=== PATIENT | female | born 1955 | race Caucasian/White ===

== ENCOUNTER 2017-08-30 19:10 | Inpatient (IN) | payer OTHER ==
[~2017-08-30] VITALS: Ht 149.9 cm; Wt 59.9 kg
--- NOTE | 2017-08-30 20:32 | ED INFLUENZA/URI COMPLAINT ---
History of Present Illness General Chief Complaint: General Adult Stated Complaint: "SHE DOESNT FEEL GOOD THE PAST DAYS" PER Source: patient Exam Limitations: no limitations Vital Signs & Intake/Output Vital Signs & Intake/Output Vital Signs Date Time Temp Pulse Resp B/P B/P Pulse O2 O2 Flow FiO2 Mean Ox Delivery Rate 08/31 0211 98.6 102 20 85/48 94 Room Air 08/31 0030 104 22 99/58 94 Room Air 08/30 2341 98.2 106 22 99/55 94 08/30 2145 98.4 108 18 100/50 93 Room Air 08/30 1921 99.6 140 18 135/73 94 Room Air ED Intake and Output 08/31 0000 08/30 1200 Intake Total Output Total Balance Patient 132 lb Weight Weight Reported by Patient Measurement Method Allergies Coded Allergies: No Known Allergies (08/30/17) Reconcile Medications Calcium Carb/Vitamin D3/Vit K1 (Calcium + D Soft Chewable Tab) 500 MG CALCIUM-1, 000 UNIT-40 MCG TAB.CHEW 2 TAB PO DAILY SUPPLEMENT (Reported) Multivitamin (Animal Chews) 1 EACH TAB.CHEW 2 TAB PO DAILY SUPPLEMENT ( Reported) Triage Note: PT TO TRIAGE C/O DIZZINESS AND CHILLS X2 DAYS. REPORTS VOMITING YESTERDAY WITH L FLANK PAIN, DENIES PAIN TODAY. HR 140 IN TRIAGE CHECKED WITH PULSE OX AND MANUALLY BY THIS RN. EKG ORDERED. DENIES MEDICAL HX. Triage Nurses Notes Reviewed? yes Onset: Abrupt Duration: constant Timing: recent history Severity: moderate Severity Numbers: 5 HPI: Patient is a 62-year-old female with an unremarkable past medical history presents emergency and that yesterday evening patient had acute onset of 5/10 localized left back and left flank pain that resolved in the morning however this evening patient began having acute onset of generalized fevers regular is shaky chills and nonproductive cough and generalized weakness and fatigue. Patient denies any headache neck pain neck stiffness ear pain sore throat chest pain and arm pain jaw pain nausea vomiting dysuria hematuria Patient did not take any medications prior to arrival, denies any similar sick contacts. Patient did take Tylenol prior to arrival (Florian Parker) ED Sepsis Exam Date of Focused Sepsis Exam: 08/31/17 Time of Focused Sepsis Exam: 2104 Sepsis Cardiac Exam: Tachycardia Sepsis Resp Exam: CTA Sepsis Cap Refill Exam: <2 Sec Sepsis Peripheral Pulse Exam: Normal Sepsis Peripheral Pulse Location: Radial Sepsis Skin Color Exam: Normal for Ethnicity Skin Temp/Moisture Exam: Warm/Dry (Florian Parker) Past History Travel History Traveled to [place] past 21 day No Medical History Any Pertinent Medical History? 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 No (Florian Parker) Review of Systems Review of Systems Constitutional: Reports: see HPI, chills. EENTM: Reports: no symptoms. Respiratory: Reports: see HPI, cough. Cardiovascular: Reports: no symptoms. GI: Reports: see HPI. Genitourinary: Reports: no symptoms. Musculoskeletal: Reports: no symptoms. Skin: Reports: no symptoms. Neurological/Psychological: Reports: no symptoms. Hematologic/Endocrine: Reports: no symptoms. Immunologic/Allergic: Reports: no symptoms. All Other Systems: Reviewed and Negative (Florian Parker) Physical Exam Physical Exam General Appearance: no apparent distress, alert, comfortable Ears, Nose, Throat: normal ENT inspection, moist mucous membrane, hearing grossly normal Rectal: heme negative stool Comments: HEENT: Normal EENT exam, extraocular motion intact, no nystagmus. Pupils equally round and reactive to light and accommodation. Nose is atraumatic. External auditory canal and Tympanic membranes clear. Pharynx normal. No swelling or edema. Neck: Supple, no lymphadenopathy, normal range of motion without pain or tenderness Back: Nontender, no CVA tenderness. Cardiovascular: TACHYCARDIA, no murmurs rubs or gallops, normal JVP Respiratory: Chest nontender. No respiratory distress.breath sounds clear to auscultation bilaterally Abdomen: Soft, nontender nondistended, no appreciable organomegaly. Normal bowel sounds. No ascites Extremity: No edema, no calf tenderness to palpation, normal and equal pulses. Neuro: Alert oriented x3 Skin: No appreciable rash on exposed skin, skin is warm and dry. Psych: Mood and affect is normal, memory and judgment is normal. Core Measures Sepsis Present: Yes Sepsis Focused Exam Completed? Yes (Florian Parker) Progress Differential Diagnosis: influenza, meningitis, neutropenia, otitis, pneumonia, pharyngitis, sinusitis Plan of Care: Orders Procedure Date/time Status Heart Healthy Diet 08/31 B Active TROPONIN LEVEL 08/31 0700 Active LIPID PANEL 08/31 07 Active CBC WITHOUT DIFFERENTIAL 08/31 07 Active BASIC ELECTROLYTES PLUS BUN&CR 08/31 07 Active EKG 08/31 0700 Active Pathway - chart 08/31 0113 Active Patient Data 08/31 0113 Active Code Status 08/31 0113 Active Patient Data 08/31 0104 Active TROPONIN LEVEL 08/31 0102 Active LACTIC ACID 08/31 0037 Complete OXYGEN SETUP (GEN) 08/31 0035 Active Saline Lock 08/31 0035 Active Admit to inpatient 08/31 0035 Active Vital Signs 08/31 0035 Active Activity/Ambulation 08/31 0035 Active Code Status 08/31 0035 Complete EKG 08/31 0029 Active BLOOD CULTURE 08/31 0020 Active Pathway - chart 08/31 UNK Active House Staff 08/31 UNK Active VTE Mechanical Prophylaxis 08/31 UNK Active Vital Signs 08/31 UNK Active Intake & Output 08/31 UNK Active Activity/Ambulation 08/31 UNK Active CASE MANAGEMENT CONSULT 08/31 UNK Active ECHOCARDIOGRAM 08/31 UNK Active Add-on Test (ER Only) 08/30 2340 Active Valdez, Insertion/Removal/Asses 08/30 2331 Active CULTURE,URINE 08/30 2331 Active URINE OSMOLALITY 08/30 2309 Active URINALYSIS 08/30 2309 Complete Add-on Test (ER Only) 08/30 2250 Active PARTIAL THROMBOPLASTIN TIME 08/30 2055 Complete PROTHROMBIN TIME 08/30 2055 Complete Telemetry/Parts Cataloguer 08/30 204 Active RAPID VIRAL INFLUENZA A 08/30 2030 Complete TROPONIN LEVEL 08/30 2030 Complete D-DIMER 08/30 2030 Complete COMPREHENSIVE METABOLIC PANEL 08/30 2030 Complete CBC WITHOUT DIFFERENTIAL 08/30 2030 Complete EKG 08/30 1923 Active Current Medications Sig/Sarah Start time Last Medication Dose Stop Time Status Admin Multivitamins 1 TAB DAILY 08/31 1000 AC (Theragran Vitamins) Heparin Sodium 25,000 UNIT Q24H 08/30 2230 AC 08/31 (Porcine) 0019 (Heparin) Sodium Chloride 500 ML Laboratory Tests 08/31/17 0208: Troponin I Pending 08/31/17 0046: Lactic Acid 1.6 08/30/172344: Urinalysis HEAVY H, Urine Color BROWN H, Urine Clarity TURBD H, Urine pH 6.5, Ur Specific [place] 1.025, Urine Protein >=300 H, Urine Ketones TRACE H, Urine Nitrite POS H, Urine Bilirubin NEG@ICTO, Urine Urobilinogen 1.0, Ur Leukocyte Esterase LARGE H, Ur Microscopic SEDIMENT EXAMINED, Urine RBC >75 H, Urine WBC > 75 H, Ur Epithelial Cells FEW, Urine Bacteria MANY H, Urine Hemoglobin LARGE H, Urine Glucose NEG 08/30/17 2250: PT Cancelled, INR Cancelled, APTT Cancelled 08/30/172054: Anion Gap 16, Estimated GFR 11 L, BUN/Creatinine Ratio 12.8, Glucose 106 H, Calcium 8.7, Total Bilirubin 0.6, AST 31, ALT 39, Alkaline Phosphatase 196 H, Troponin I 0.21 *H, Total Protein 5.9 L, Albumin 3.0 L, Globulin 2.9, Albumin/ Globulin Ratio 1.0 L, PT 13.6 H, INR 1.30 H, APTT 26, D-Dimer High Sensitivty 9356 H, CBC w Diff MAN DIFF ORDERED, RBC 4.33, MCV 92.1, MCH 31.1 H, RDW 12.8, MPV 7.6, Gran % 97.0 H, Lymphocytes % 2.6 L, Monocytes % 0.3 L, Eosinophils % 0.1, Basophils % 0, Absolute Granulocytes 8.4 H, Segmented Neutrophils 86 H, Band Neutrophils 9 H, Absolute Lymphocytes 0.2 L, Lymphocytes 2 L, Monocytes 3, Absolute Monocytes 0 L, Absolute Eosinophils 0, Absolute Basophils 0, Platelet Estimate DECREASED, Normocytic RBCs VERIFIED, Normochromic RBCs VERIFIED, PUBS MCHC 33.8 Microbiology 08/31 0130 BLOOD: Blood Culture - RECD 08/31 0046 BLOOD: Blood Culture - RECD 08/30 2345 URINE ROUT: Urine Culture - RECD 08/30 2045 NASOPHARYN: Influenza Virus A & B Rapid Smear - COMP Other differential diagnosis acute renal colic and nephrolithiasis lumbar strain discitis Patient has nontender abdomen no flank tenderness no CVA tenderness nontender lumbar spine and has unremarkable physical exam patient does present noted to be sinus tachycardia and low-grade fever IV fluids were established Patient had critical findings of acute kidney injury and elevated troponin and patient on EKG does show concerns of a suspecting old non-STEMI due to patient's elevated troponin and Q waves Patient also has concerns initially of tachycardia and d-dimer was significantly elevated however patient could not obtain a CT angiogram in the emergency room. Heparin will be administered prophylactically for PE and for elevated troponin Patient also could not produce urine in the emergency room it was due to patient 's acute kidney injury that a Valdez catheter was placed patient did produce significantly concentrated urine IV fluid resuscitation was ordered - 4 liters, Rocephin was administered for concerns of urine infection I discussed critical findings of elevated troponin and concerns of non-STEMI and acute kidney injury With patient and family members were aware patient will be admitted Discussed admission with charger operator helper Dr. Bhakta who is aware of ICU admission Diagnostic Imaging: Viewed by Me: Radiology Read, CT Scan. CXR Impression: no acute abnormality, no infiltrates Initial ED EK BPM, NSR q wave noted in inferior leads Comments: PATIENT: KRISTI PINK PRESENT AGE: 62 PATIENT ACCOUNT NO: [id number] : 55 LOCATION: [facility] ORDERING PHYSICIAN: Florian TIM SERVICE DATE: 08/30/17 EXAM TYPE: CAT - CT ABD & PELVIS W/O IV CONTRAS EXAMINATION: CT ABDOMEN AND PELVIS WITHOUT CONTRAST CLINICAL INFORMATION: Left back pain. COMPARISON: None. TECHNIQUE: Multidetector volumetric imaging was performed from the superior aspect of the liver through the pubic symphysis. Sagittal and coronal reformatted images were obtained on the technologist's workstation. DLP: 277.63 mGy-cm FINDINGS: LUNG BASES: The visualized lung bases are unremarkable. LIVER, GALLBLADDER, AND BILIARY TREE: There is hepatomegaly. Liver measures 22.4 cm superior inferior. Diffuse low attenuation of liver parenchyma due to fatty change. No focal liver lesion. No intrahepatic bile duct dilatation. There are tiny calcified gallstones layering dependently in the gallbladder. No gallbladder wall thickening or edema around the gallbladder. No bile duct dilatation. PANCREAS: Unremarkable. SPLEEN: Unremarkable. ADRENAL GLANDS: Unremarkable. KIDNEYS AND URETERS: There is significant hydronephrosis of left kidney with distention of renal pelvises and calyces and edema around the kidney. This is due to an obstructing stone in the proximal left ureter at the ureteropelvic junction. The stone measures 6 x 4 mm. There is no additional 2 mm nonobstructive stone and 4 mm nonobstructive stone in the lower pole of left kidney. Right kidney and ureter are normal. BLADDER: Unremarkable. GASTROINTESTINAL TRACT: No acute change of the bowel. No bowel obstruction. No bowel wall thickening or edema. Moderate amount of stool in the colon. There are some flecks of high density material scattered throughout the stool in the right colon and transverse colon, or lead ingested material. The appendix is not visualized. No inflammation the mesentery right lower quadrant. Small bowel loops unremarkable. ABDOMINAL WALL: No significant hernia is appreciated. LYMPH NODES: Normal. VASCULAR: Unremarkable. PELVIC VISCERA: Unremarkable. OSSEOUS STRUCTURES: Unremarkable. IMPRESSION: 1. Hydronephrosis of the left kidney due to an obstructing 6 x 4 mm stone at the ureteropelvic junction. 2 additional small nonobstructive calculi in left kidney. 2. Cholelithiasis. 3. Hepatomegaly with diffuse fatty change of liver. DICTATED BY: Dami Rodriguez MD DATE/TIME DICTATED:08/30/172231 DIRECTOR OF PUPIL PERSONNEL PROGRAM:CHARISMA PATIENT: KRISTI PINK PRESENT AGE: 62 PATIENT ACCOUNT NO: [id number] : 55 LOCATION: [facility] ORDERING PHYSICIAN: Florian TIM SERVICE DATE: 08/30/17 EXAM TYPE: RAD - XRY-CHEST XRAY, TWO VIEWS EXAMINATION: XR CHEST CLINICAL INFORMATION: Cough, fever COMPARISON: None TECHNIQUE: 2 views of the chest were obtained. FINDINGS: No significant abnormality is noted involving the heart, lungs, mediastinum, bony thorax or soft tissues. IMPRESSION: No acute abnormality of the chest. DICTATED BY: Dami Rodriguez MD DATE/TIME DICTATED:08/30/172227 DIRECTOR OF PUPIL PERSONNEL PROGRAM:CHARISMA (Nikki TIM,Florian) Departure Departure Disposition: STILL A PATIENT Condition: Guarded Clinical Impression Primary Impression: Non-ST elevated myocardial infarction Secondary Impressions: LAURIE (acute kidney injury), Elevated troponin, Kidney stone on left side Referrals: Luann Moya MD (PCP/Family) Departure Forms: Customer Survey General Discharge Information Admission Note Spoke With: Giovani GREENBERG,[place] Documentation of Exam: Documentation of any treatments & extenuating circumstances including Concerns Regarding Discharge (functional status, medication knowledge or non-compliance, living conditions, etc.) that warrant an admission rather than observation: [ Patient requires IV antibiotics, heparin, repeat labs, telemetry monitoring, IV fluid resuscitation, blood cultures urine culture pending] (Florian Parekr) PA/BOX SEALING MACHINE OPERATOR Co-Sign Statement Statement: ED Attending supervision documentation- I saw and evaluated the patient. I have also reviewed all the pertinent lab results and diagnostic results. I agree with the findings and the plan of care as documented in the PA's/BOX SEALING MACHINE OPERATOR's documentation. Dizzy, chills, L flank pain with LAURIE, +troponin, hydronephrosis with obstructing stone, inferior Q waves [] I have reviewed the ED Record and agree with the PA's/BOX SEALING MACHINE OPERATOR's documentation. [] Additions or exceptions (if any) to the PAs/BOX SEALING MACHINE OPERATOR's note and plan are summarized below: [] (Renetta GREENBERG,[place]) Critical Care Note Critical Care Note Critical Care Time: 75-104 min (Florian Parker)
[2017-08-30 21:04] LABS: ABSOLUTE BASOPHIL COUNT 0 /CUMM (0.0-0.2); ABSOLUTE EOSINOPHIL COUNT 0 /CUMM (0.0-0.7); ABSOLUTE GRANULOCYTE CT 8.4 /CUMM (1.4-6.5); ABSOLUTE LYMPH COUNT 0.2 /CUMM (1.2-3.4); ABSOLUTE MONOCYTE COUNT 0 /CUMM (0.10-0.60); BASOPHIL % 0 % (0.0-2.0); EOSINOPHIL % 0.1 % (0-5); HEMATOCRIT 39.9 % (37-47); MEAN CORPUSCULAR HGB 31.1 PG (27.0-31.0); MEAN CORPUSCULAR HGB CONC 33.8 G/DL (33.0-37.0); MEAN CORPUSCULAR VOLUME 92.1 FL (81.0-99.0); MEAN PLATELET VOLUME 7.6 FL (7.4-10.4); PLATELET COUNT 123 /CUMM (130-400); RBC DISTRIBUTION WIDTH 12.8 % (11.5-14.5); RED BLOOD CELL CT 4.33 /CUMM (4.20-5.40); WHITE BLOOD CELL COUNT 8.7 /CUMM (4.8-10.8)
[2017-08-30] MEDS ORDERED: CALCIUM + D SO1 EACH PO (21:33)
[2017-08-30] MEDS ORDERED: ANIMAL CHEWS1 EACH PO (21:33)
--- NOTE | 2017-08-30 22:32 | RADIOLOGY REPORT ---
EXAMINATION: XR CHEST CLINICAL INFORMATION: Cough, fever COMPARISON: None TECHNIQUE: 2 views of the chest were obtained. FINDINGS: No significant abnormality is noted involving the heart, lungs, mediastinum, bony thorax or soft tissues. IMPRESSION: No acute abnormality of the chest.
[2017-08-30 23:00] LABS: PT 13.6 SEC (9.4-12.5); PTT 26 SEC (25-37)
--- NOTE | 2017-08-30 23:32 | CT SCAN REPORT ---
EXAMINATION: CT ABDOMEN AND PELVIS WITHOUT CONTRAST CLINICAL INFORMATION: Left back pain. COMPARISON: None. TECHNIQUE: Multidetector volumetric imaging was performed from the superior aspect of the liver through the pubic symphysis. Sagittal and coronal reformatted images were obtained on the technologist's workstation. DLP: 277.63 mGy-cm FINDINGS: LUNG BASES: The visualized lung bases are unremarkable. LIVER, GALLBLADDER, AND BILIARY TREE: There is hepatomegaly. Liver measures 22.4 cm superior inferior. Diffuse low attenuation of liver parenchyma due to fatty change. No focal liver lesion. No intrahepatic bile duct dilatation. There are tiny calcified gallstones layering dependently in the gallbladder. No gallbladder wall thickening or edema around the gallbladder. No bile duct dilatation. PANCREAS: Unremarkable. SPLEEN: Unremarkable. ADRENAL GLANDS: Unremarkable. KIDNEYS AND URETERS: There is significant hydronephrosis of left kidney with distention of renal pelvises and calyces and edema around the kidney. This is due to an obstructing stone in the proximal left ureter at the ureteropelvic junction. The stone measures 6 x 4 mm. There is no additional 2 mm nonobstructive stone and 4 mm nonobstructive stone in the lower pole of left kidney. Right kidney and ureter are normal. BLADDER: Unremarkable. GASTROINTESTINAL TRACT: No acute change of the bowel. No bowel obstruction. No bowel wall thickening or edema. Moderate amount of stool in the colon. There are some flecks of high density material scattered throughout the stool in the right colon and transverse colon, or lead ingested material. The appendix is not visualized. No inflammation the mesentery right lower quadrant. Small bowel loops unremarkable. ABDOMINAL WALL: No significant hernia is appreciated. LYMPH NODES: Normal. VASCULAR: Unremarkable. PELVIC VISCERA: Unremarkable. OSSEOUS STRUCTURES: Unremarkable. IMPRESSION: 1. Hydronephrosis of the left kidney due to an obstructing 6 x 4 mm stone at the ureteropelvic junction. 2 additional small nonobstructive calculi in left kidney. 2. Cholelithiasis. 3. Hepatomegaly with diffuse fatty change of liver.
--- NOTE | 2017-08-31 01:11 | History & Physical ---
Kimi Mora MD,[facility] 08/31/17 0111: General Information and HPI MD Statement: I have seen and personally examined KRISTI PINK and documented this H&P. The patient is a 62 year old F who presented with a patient stated chief complaint of not feeling good. Source of Information: patient, family, old records History of Present Illness: Patient is a 62-year-old female with no remarkable past medical history presented to ED with chief complaint of generalized weakness and fatigue. was at the bedside and was contributing in history taking. Patient was in usual state of health until the before admission that she started to have some vague abdominal pain, the 5/10 pain was later in the left back/left flank. She also had nausea and non-bloody vomiting. Yesterday patient started to have chills, had dizziness and fatigue, had one episode of nonbloody diarrhea. She took 1 pill of Motrin but with no improvement came to ER. She reported overall low by mouth fluid intake, generally had dark urine which sometimes had bad smelling, but had no oliguria or urinary symptoms. She also reported choronic right shoulder pain (which was not new) which was making her to lie on the left body side during the interview. Patient denied any chest pain, shortness of breathing, headache. She also reported that she had physicals 2months ago which showed kidney stone and hepatic steatosis. She reported to have some stress at work recently and denied smoking or alcohol intake. Family history was remarkable for father's heart attack at 50s, DVT in mom who underwent IVC filter. Allergies/Medications Allergies: Coded Allergies: No Known Allergies (08/30/17) Home Med list Calcium Carb/Vitamin D3/Vit K1 (Calcium + D Soft Chewable Tab) 500 MG CALCIUM-1, 000 UNIT-40 MCG TAB.CHEW 2 TAB PO DAILY SUPPLEMENT (Reported) Multivitamin (Animal Chews) 1 EACH TAB.CHEW 2 TAB PO DAILY SUPPLEMENT ( Reported) Past History Travel History Traveled to [place] past 21 day No Medical History Neurological: NONE EENT: NONE Cardiovascular: NONE Respiratory: NONE Gastrointestinal: NONE Hepatic: NONE Renal: KIDNEY STONE Musculoskeletal: NONE Psychiatric: NONE Endocrine: NONE Blood Disorders: NONE Cancer(s): NONE INJECTION SPECIALIST/Reproductive: NONE Surgical History Surgical History: non-contributory Past Family/Social History Psychosocial History ETOH Use: denies use Review of Systems Review of Systems Constitutional: Reports: no symptoms. Exam & Diagnostic Data Last 24 Hrs of Vital Signs/I&O Vital Signs Date Time Temp Pulse Resp B/P B/P Pulse O2 O2 Flow FiO2 Mean Ox Delivery Rate 08/31 0435 90 16 99/52 99 Room Air 08/31 0345 96.6 89 16 91/51 99 Room Air 08/31 0254 98.9 99 20 88/63 96 Room Air 08/31 0211 98.6 102 20 85/48 94 Room Air 08/31 0030 104 22 99/58 94 Room Air 08/30 2341 98.2 106 22 99/55 94 08/30 2145 98.4 108 18 100/50 93 Room Air 08/30 1921 99.6 140 18 135/73 94 Room Air Intake & Output 08/31 0800 08/31 0000 08/30 1600 Intake Total 6100 Output Total 12 Balance 6088 Intake, IV 6100 Output, Urine 12 Patient 132 lb Weight Weight Reported by Patient Measurement Method Physical Exam General Appearance Alert, Oriented X3, Cooperative, No Acute Distress Skin No Significant Lesion Skin Temp/Moisture Exam: Warm/Dry Sepsis Skin Exam (color): Normal for Ethnicity HEENT Atraumatic, EOMI, Mucous dry, pupils reactive to light Neck No JVD Cardiovascular Normal S1, Normal S2, Tachicardic Lungs Clear to Auscultation Abdomen Soft, No Tenderness Neurological Normal Speech, Strength at 5/5 X4 Ext, Normal Tone, Sensation Intact Extremities trace - +1 edema in bilateral leg Last 24 Hrs of Labs/Bladimir: Laboratory Tests 08/31/17 0337: Lactic Acid Cancelled 08/31/17 0250: Urine Osmolality 282 L, Ur Random Creatinine 210.5, Ur Random Sodium 76, Ur Random Potassium 32.2, Fraction Sodium Excret 1.1 H 08/31/17 0208: Estimated GFR 12 L, BUN/Creatinine Ratio 11.5, Magnesium 1.1 L, Lactate Dehydrogenase 461, Troponin I 0.25 *H, TSH 0.713, Free T4 1.48 08/31/17 0046: Lactic Acid 1.6 08/30/175: Urinalysis HEAVY H, Urine Color BROWN H, Urine Clarity TURBD H, Urine pH 6.5, Ur Specific Dana 1.025, Urine Protein >=300 H, Urine Ketones TRACE H, Urine Nitrite POS H, Urine Bilirubin NEG@ICTO, Urine Urobilinogen 1.0, Ur Leukocyte Esterase LARGE H, Ur Microscopic SEDIMENT EXAMINED, Urine RBC >75 H, Urine WBC > 75 H, Ur Epithelial Cells FEW, Urine Bacteria MANY H, Urine Hemoglobin LARGE H, Urine Glucose NEG 08/30/170: PT Cancelled, INR Cancelled, APTT Cancelled 08/30/172054: Anion Gap 16, Estimated GFR 11 L, BUN/Creatinine Ratio 12.8, Glucose 106 H, Calcium 8.7, Total Bilirubin 0.6, AST 31, ALT 39, Alkaline Phosphatase 196 H, Troponin I 0.21 *H, Total Protein 5.9 L, Albumin 3.0 L, Globulin 2.9, Albumin/ Globulin Ratio 1.0 L, PT 13.6 H, INR 1.30 H, APTT 26, D-Dimer High Sensitivty 9356 H, CBC w Diff MAN DIFF ORDERED, RBC 4.33, MCV 92.1, MCH 31.1 H, RDW 12.8, MPV 7.6, Gran % 97.0 H, Lymphocytes % 2.6 L, Monocytes % 0.3 L, Eosinophils % 0.1, Basophils % 0, Absolute Granulocytes 8.4 H, Segmented Neutrophils 86 H, Band Neutrophils 9 H, Absolute Lymphocytes 0.2 L, Lymphocytes 2 L, Monocytes 3, Absolute Monocytes 0 L, Absolute Eosinophils 0, Absolute Basophils 0, Platelet Estimate DECREASED, Normocytic RBCs VERIFIED, Normochromic RBCs VERIFIED, PUBS MCHC 33.8 Microbiology 08/31 0130 BLOOD: Blood Culture - RECD 08/31 0046 BLOOD: Blood Culture - RECD 08/30 2345 URINE ROUT: Urine Culture - RECD 08/30 2045 NASOPHARYN: Influenza Virus A & B Rapid Smear - COMP Assessment/Plan Assessment: 62-year-old female presented with left flank pain, dizziness, weakness and fatique, dark urine PMH: presented to ED with chief complaint of generalized weakness and fatigue. VS, Ph Ex at admission: BP 135/73 decreased later to 99/58, ID of 140-104, RR 18 -22, saturation >90% in room air EKG: Q wave in II, III and AVF, S1Q3T3 BP was later dropped ton 80s during the ED admission. Labs at admission: C BC, Hgb 13.5, PLT 123, WBC 8.7, Band 9, INR 1.3, d-dimer 9356, UA active, Pr>300, WBC>75, RBC>75, HGb +, Leuk esterase positive Imagings at admission: CXR: No acute abnormality of the chest. CT: 1. Hydronephrosis of the left kidney due to an obstructing 6 x 4 mm stone at the ureteropelvic junction. 2 additional small nonobstructive calculi in left kidney. 2. Cholelithiasis. 3. Hepatomegaly with diffuse fatty change of liver. Patient was admitted to ICU for management of following conditions: Shock: sepsis/ massive PE DD includes septic shock (UA active, bandemia, tachycardia), or shock due to decreased preload in setting of massive PE (S1Q3T3, D Dimer positive). lower in our DD includes renal vein thrombosis (LAURIE, hematuria, increased D Dimer) or HUS (had history of diarrhea, Plt count 123, but no food outside except lobster). Sepsis is most likely in setting of urology infection as UA was active. Patient also had obstruction in left kidney making it as a complicated UTI, urine culture was sent. Patient was administered 6lit of bolus fluids. was still olyguric. - admit patient to ICU - monitor VS/I/O, MAP goal>65 - continue IV fluids - CV line consented, consider in AM - Consider pressors if needed to MAP goal >65 - continue heparin IV - ceftriaxone IV - follow piña culture LAURIE BUN/cr ratio was 11.5, UA active but no cast was observed. Prerenal azotemia in setting of shock, yet post renal also has same pattern of BUN/Cr, the fact the obstruction was in one sided makes this lower in our DD risk. urine lytes were added. We continue to give IV fluids - continue IV fluids - Urine lytes - continue monitor Cr - Urology consult was placed Elevated TN: Patient had no chest pain, most likely MO II in setting of shock. - Cardiology consult - Echo in AM for RV strain - EKG and Tn serial - Aspirin was administered NPO for now DVT PPx: IV heparin and ALPS FC As Ranked By This Provider Problem List: 1. Kidney stone on left side 2. Non-ST elevated myocardial infarction 3. LAURIE (acute kidney injury) 4. Elevated troponin 5. Septic shock Core Measures/Misc (05/20) Acute Coronary Syndrome ACS Diagnosis: No Congestive Heart Failure Congestive Heart Failure Diagnosis No Cerebrovascular Accident CVA/TIA Diagnosis: No VTE (View Protocol) VTE Risk Factors Age>40 No Mechanical VTE Prophylaxis d/t N/A MechProphylax Ordered No VTE Pharm Prophylaxis d/t NA PharmProphylax ordered Sepsis (View protocol) Sepsis Present: Yes Giovani GREENBERG, [facility] 08/31/17 0651: Attending MD Review Statement Attending Statement Attending MD Statement: examined this patient, discuss w/resident/PA/WASHHOUSE HAND, agreed w/resident/PA/WASHHOUSE HAND, discussed with family, reviewed images, amended to note Attending Assessment/Plan: 62 yo F with h/o nephrolithiasis and hepatic steatosis, comes in for evaluation of left flank pain, malaise and fatigue for past 2 days. Patient reports being in her USOH, when she started having acute onset of left flank/ lower back pain that resolved with Tylenol. She spent all day in bed, and felt fatigued with generalized malaise. She reports chills, lightheadedness, with nausea, vomiting, nonbloody diarrhea and poor PO intake. She continues to have lower abdominal discomfort but denies dysuria, hematuria or urinary frequency. She reports occasional dark and foul smelling urine. She has had recurrent UTIs as a teenager but nothing recently. She denies having symptoms of kidney stones in the past, these were identified by her PCP on ultrasound. She has not undergone any urological procedure, and reports her blood work prior to physical with PCP were normal. to bring in the results from home. Vitals: afebrile, HR 90-110's, BP 135/73 --> 99/55 --> 85/48 --> 99/52 with fluids, sats 98% RA. Exam: AAO, in mild distress, ill-appearing lady, very dry mucous membranes, Neck supple, Skin warm and dry, capillary refill ~ 2 secs, No pallor or lymphadenopathy, Chest b/l clear anteriorly, Heart S1S2 regular, Abdomen: soft, diffusely sore, tender in lower abdomen and left flank region, BS hypoactive, Left CVA tenderness+, LE: no edema. Labs: no leukocytosis, Plt 123, bands 9, INR 1.30, D-dimer 9356, Na 135, K 3.0, bicarb 21, BUN 51, creat 4.0 (baseline not known), glucose 106, lactic acid 1.6, LFTs normal, except for elevated Alk phos, trop 0.21 --> 0.25, Mag 1.1. UA brown , turbid, proteinuria, trace ketones, positive nitrite, large leukocyte esterase , RBC > 75, WBC >75, many bacteria, large Hb. CXR: no acute abnormality, CT abd/pelvis: hydronephrosis of left kidney due to obstructing 6 x 4 mm stone at ureteropelvic junction, heptomegaly with fatty change, cholelithiasis. EKG: sinus tachycardia with right axis deviation, inferior Q-waves, S1Q3T3 with ST-T changes (V2-6) (no old EKG to compare). Assessment and plan: 1. Severe sepsis (bandemia, tachycardia) with impending septic and hypovolemic shock 2. UTI with acute cystitis and pyelonephritis 3. Left hydronephrosis from obstructive uropathy 2/2 renal stone 4. LAURIE with metabolic acidosis in the setting of urosepsis, obstructive uropathy in combination with pre-renal azotemia 5. NSTEMI vs Type 2 MO vs. Poor renal clearance 6. Elevated D-dimer concerning for PE 7. Acute EKG changes - inferior Q-waves, S1Q3T3, with poor R-wave progression 8. Hypokalemia and hypomagnesemia 9. Thrombocytopenia - Admit to ICU - Vitals Q1 hour - Urine culture, blood cultures x 2 - Valdez placement, monitor I/O's - IV ceftriaxone for now - Patient has received 6 L NS bolus, BP remains borderline in 90's - Continue maintenance fluids at 150/hr, goal MAP > 65 mmHg - Consider central line placement, consent has been obtained - Urology consult for possible stent placement - NPO for now - CRCU consult - IV heparin initiated in ER per PTT protocol - Guaiac all stools, monitor H/H and platelet count while on heparin. - Trend renal functions and lactic acid - Check CPK, TSH, free T4 - Add on urine tox screen - Check urine lytes and consider Nephro consult if her renal functions do not improve - Serial EKG and troponin and Cardio consult - Obtain echo to assess LV function, right heart strain and pulmonary pressures - Aspirin 81 mg daily - Unable to do CTA chest to rule out PE, consider VQ scan in AM - Obtain LE dopplers to rule out DVT - Replete electrolytes - Obtain records from PCP about her most recent blood work. - GI ppx IV PPI DVT px IV heparin. Full code. TTS > 45 mins Jose Luis GREENBERG,Beatriz 08/31/17 0748: Resident Review Statement Resident Statement: examined this patient, discussed with wireless internet installer, agreed with wireless internet installer, discussed with family, reviewed EMR data (avail), discussed with nursing Other Findings: Patient is a 62 YO F with no significant except for nephrolithiasis PMH presented with 2day history of left flank pain, nausea, vomiting, fever, chills and decreased per oral intake. VS at presentation were significant for Tmax of 99.7, tachycardia of 140, BP 130/80mmHg, on room air. Physical exam is signficant for dry mucous membranes with clear lungs, normal S1, S2, soft nonteder abdomen. Left CVA tenderness present. Labs are notable Plt 123, bands 9, INR 1.30, D-dimer 9356, Na 135, K 3.0, bicarb 21, BUN 51, creat 4.0 (baseline not known), glucose 106, lactic acid 1.6, LFTs normal, except for elevated ALP, Troponin 0.21 --> 0.25, Mag 1.1. UA brown, turbid, proteinuria, trace ketones, positive nitrite, large leukocyte esterase, RBC > 75, WBC >75, many bacteria, large Hb. CXR: no acute abnormality, CT abd/pelvis: hydronephrosis of left kidney due to obstructing 6 x 4 mm stone at ureteropelvic junction, heptomegaly with fatty change, cholelithiasis. EKG: sinus tachycardia with right axis deviation, inferior Q-waves, S1Q3T3 with ST-T changes (V2-6) and II, III, aVF. Differntials 1. Hypovolemic shock - Obstructive ureteric stone vs massive PE 2. Obstuctive uropathy causing Post renal LAURIE --> sepsis--> impending septic shock 3. NSTEMI Assessment and plan: 1. Severe sepsis (bandemia, tachycardia) with impending septic and hypovolemic shock 2. Obstructive uropathy with left hydronephrosis causing cystitis and pyelonephritis 3. Elevated D-dimer concerning for PE 4. NSTEMI vs Type 2 MO vs. Poor renal clearance 5. Electrolytemia - K and Mag 6. Acute EKG changes - inferior Q-waves, S1Q3T3, with poor R-wave progression 7. Thrombocytopenia Plan Admit to ICU 1. Severe sepsis (bandemia, tachycardia) with impending septic and hypovolemic shock Patient had a history of stones and found to be in postrenal LAURIE with metabolic acidosis. She did drink less water in general and on top it had nausea/vomting, mild fever. Aggressively hydrated with 5L so far. she started having bloody urine later in the morning. * Continue hydration NS @ 100-150ml/hr * IV ceftriaxone 1gm for now * Lactic acid normal * Urology consult for relieving the obstruction * NPO overnight for possible stone removal * check cbc, bep daily 2. Elevated D-dimer concerning for PE No known risk factors, active at baseline. Family history of clots requiring IVC filter in mother. * EKG changes concerning for right heart strain and PE * started on IV heparin * consider VQ scan in am 4. NSTEMI vs Type 2 MO vs. Poor renal clearance Completely asymptomatic with no risk factors. Troponin elevated * serial EKG and troponins * EKG concerning for NSTEMI * ECHO to rule out wallmotion abnormalities * Cardiology consult 5. Electrolytemia - K -3 and Mag -1.1 Repleted * daily electrolyte check - be generoug with K repletion given renal injury 6. Thrombocytopenia Possibley secondary to sepsis. Given started on IV heparin, monitor closely. * Daily CBC 7. DVT prophylaxis IV heparin Code status full code
--- NOTE | 2017-08-31 05:20 | Admission Certification ---
Admission Certification Certification Statement - As attending physician, I certify that at the time of - admission, based on clinical presentation, severity of - symptoms, need for further diagnostic testing and - therapeutic interventions, and risk of adverse outcomes - without in-hospital treatment, in my clinical assessment, - this patient requires an acute hospital stay for a minimum - of two nights or longer. I have also considered psychsocial - factors such as support system, advanced age, financial - issues, cognitive issues, and failed out-patient treatments, - past re-admission history, safety of patient, and lack of - compliance as applicable. Specific rationale supporting this admission is: Severe sepsis with impending shock, left hydronephrosis due to obstructive uropathy from nephrolithiasis, UTI possible pyelonephritis, LAURIE, NSTEMI requiring ICU level of care.
--- NOTE | 2017-08-31 07:45 | Cons- CRCU ---
Jayashree Mayers 08/31/17 0745: General Information and HPI Consulting Request Date of Consult: 08/31/17 Requested By: Dr Matute Reason for Consult: Severe sepsis Source of Information: patient Exam Limitations: no limitations History of Present Illness: 62 yo F with h/o nephrolithiasis and hepatic steatosis, presented to the ED for evaluation of left flank pain, malaise and fatigue for past 2 days. She reported generalized malaise, fatigue, low back pain, foul-smelling urine, lightheadedness with nausea and vomiting, nonbloody diarrhea with poor by mouth intake. Vitals: afebrile, HR 90-110's, BP 135/73 -> 99/52 with fluids, sats 98% RA. Labs: no leukocytosis, bands 9, Plt 123, INR 1.30, D-dimer 9356, Na 135, K 3.0, bicarb 21, BUN 51, creat 4.0 (baseline not known), glucose 106, lactic acid 1.6, LFTs normal, except for elevated Alk phos, trop 0.21 -> 0.25, Mag 1.1 UA brown, turbid, proteinuria, trace ketones, positive nitrite, large leukocyte esterase, RBC > 75, WBC >75, many bacteria, large Hb. CT abd/pelvis: hydronephrosis of left kidney due to obstructing 6 x 4 mm stone at ureteropelvic junction, heptomegaly with fatty change, cholelithiasis. Chest x-ray no acute pathology. EKG: sinus tachycardia with right axis deviation, inferior Q-waves, S1Q3T3 with ST-T changes (V2-6) (no old EKG to compare). Allergies/Medications Allergies: Coded Allergies: No Known Allergies (08/30/17) Home Med List: Calcium Carb/Vitamin D3/Vit K1 (Calcium + D Soft Chewable Tab) 500 MG CALCIUM-1, 000 UNIT-40 MCG TAB.CHEW 2 TAB PO DAILY SUPPLEMENT (Reported) Multivitamin (Animal Chews) 1 EACH TAB.CHEW 2 TAB PO DAILY SUPPLEMENT ( Reported) Review of Systems Review of Systems Constitutional: Reports: malaise, weakness. EENTM: Reports: no symptoms. Cardiovascular: Reports: no symptoms. Respiratory: Reports: no symptoms. GI: Reports: constipation, diarrhea, nausea, changes in stool, vomiting. Genitourinary: Reports: no symptoms. Musculoskeletal: Reports: no symptoms. Skin: Reports: no symptoms. 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 Home Services at Home: None Smoking Status: Never Smoked ETOH Use: denies use Exam & Diagnostic Data Last 24 Hrs of Vital Signs/I&O Vital Signs Date Time Temp Pulse Resp B/P B/P Pulse O2 O2 Flow FiO2 Mean Ox Delivery Rate 08/31 0532 96.6 84 16 97/57 98 Room Air Room Air 08/31 0435 90 16 99/52 99 Room Air 08/31 0345 96.6 89 16 91/51 99 Room Air 08/31 0254 98.9 99 20 88/63 96 Room Air 08/31 0211 98.6 102 20 85/48 94 Room Air 08/31 0030 104 22 99/58 94 Room Air 08/30 2341 98.2 106 22 99/55 94 08/30 2145 98.4 108 18 100/50 93 Room Air 08/30 1921 99.6 140 18 135/73 94 Room Air Intake & Output 08/31 0800 08/31 0000 08/30 1600 Intake Total 6200 Output Total 57 Balance 6143 Intake, IV 6200 Output, Urine 57 Patient 66.281 kg 59.874 kg Weight Weight Bed scale Reported by Patient Measurement Method Physical Exam General Appearance: well developed/nourished, alert, awake, mild distress Head: atraumatic, normal appearance Eyes: Bilateral: normal appearance. Ears, Nose, Throat: normal pharynx Neck: normal inspection, supple, full range of motion Respiratory: normal breath sounds, chest non-tender Cardiovascular: regular rate/rhythm Gastrointestinal: tenderness, cva tenderness Back: normal inspection Extremities: normal inspection, normal capillary refill Last 48 Hrs of Labs/Bladimir: Laboratory Tests 08/31/17 0655: Lactic Acid Pending 08/31/17 0655: Sodium Pending, Potassium Pending, Chloride Pending, Carbon Dioxide Pending, Anion Gap Pending, BUN Pending, Creatinine Pending, Glucose Pending, Calcium Pending, Phosphorus Pending, Magnesium Pending, Total Bilirubin Pending, AST Pending, ALT Pending, Troponin I Pending, Albumin Pending, Triglycerides Pending , Cholesterol Pending, LDL Cholesterol, Calc Pending, HDL Cholesterol Pending, Cholesterol/HDL Ratio Pending, APTT Pending, CBC w Diff Pending, WBC Pending, RBC Pending, Hgb Pending, Hct Pending, MCV Pending, MCH Pending, RDW Pending, Plt Count Pending, MPV Pending, PUBS MCHC Pending 08/31/17 0337: Lactic Acid Cancelled 08/31/17 0250: Urine Osmolality 282 L, Ur Random Creatinine 210.5, Ur Random Sodium 76, Ur Random Potassium 32.2, Fraction Sodium Excret 1.1 H 08/31/17 0208: Estimated GFR 12 L, BUN/Creatinine Ratio 11.5, Magnesium 1.1 L, Lactate Dehydrogenase 461, Creatine Kinase 46, Troponin I 0.25 *H, TSH 0.713, Free T4 1.48 08/31/17 0046: Lactic Acid 1.6 08/30/17 2345: Urinalysis HEAVY H, Urine Color BROWN H, Urine Clarity TURBD H, Urine pH 6.5, Ur Specific [place] 1.025, Urine Protein >=300 H, Urine Ketones TRACE H, Urine Nitrite POS H, Urine Bilirubin NEG@ICTO, Urine Urobilinogen 1.0, Ur Leukocyte Esterase LARGE H, Ur Microscopic SEDIMENT EXAMINED, Urine RBC >75 H, Urine WBC > 75 H, Ur Epithelial Cells FEW, Urine Bacteria MANY H, Urine Hemoglobin LARGE H, Urine Glucose NEG 08/30/17 2250: PT Cancelled, INR Cancelled, APTT Cancelled 08/30/172054: Anion Gap 16, Estimated GFR 11 L, BUN/Creatinine Ratio 12.8, Glucose 106 H, Calcium 8.7, Total Bilirubin 0.6, AST 31, ALT 39, Alkaline Phosphatase 196 H, Troponin I 0.21 *H, Total Protein 5.9 L, Albumin 3.0 L, Globulin 2.9, Albumin/ Globulin Ratio 1.0 L, PT 13.6 H, INR 1.30 H, APTT 26, D-Dimer High Sensitivty 9356 H, CBC w Diff MAN DIFF ORDERED, RBC 4.33, MCV 92.1, MCH 31.1 H, RDW 12.8, MPV 7.6, Gran % 97.0 H, Lymphocytes % 2.6 L, Monocytes % 0.3 L, Eosinophils % 0.1, Basophils % 0, Absolute Granulocytes 8.4 H, Segmented Neutrophils 86 H, Band Neutrophils 9 H, Absolute Lymphocytes 0.2 L, Lymphocytes 2 L, Monocytes 3, Absolute Monocytes 0 L, Absolute Eosinophils 0, Absolute Basophils 0, Platelet Estimate DECREASED, Normocytic RBCs VERIFIED, Normochromic RBCs VERIFIED, PUBS MCHC 33.8 Microbiology 08/30 2045 NASOPHARYN: Influenza Virus A & B Rapid Smear - COMP Assessment/Plan Impression/Plan: 62 yo F with h/o nephrolithiasis and hepatic steatosis, presented to the ED for evaluation of left flank pain, malaise and fatigue for past 2 days. She reported generalized malaise, fatigue, low back pain, foul-smelling urine, lightheadedness with nausea and vomiting, nonbloody diarrhea with poor by mouth intake. At admission , Vitals: afebrile, HR 90-110's, BP 135/73 -> 99/52 with fluids, sats 98% RA. Labs: no leukocytosis, bands 9, Plt 123, INR 1.30, D-dimer 9356, Na 135, K 3.0, bicarb 21, BUN 51, creat 4.0 (baseline not known), glucose 106, lactic acid 1.6, LFTs normal, except for elevated Alk phos, trop 0.21 -> 0.25, Mag 1.1 UA brown, turbid, proteinuria, trace ketones, positive nitrite, large leukocyte esterase, RBC > 75, WBC >75, many bacteria, large Hb. CT abd/pelvis: hydronephrosis of left kidney due to obstructing 6 x 4 mm stone at ureteropelvic junction, heptomegaly with fatty change, cholelithiasis. Chest x-ray no acute pathology. EKG: sinus tachycardia with right axis deviation, inferior Q-waves, S1Q3T3 with ST-T changes (V2-6) (no old EKG to compare). Assessment and plan #1 Severe sepsis(tachycardia, bandemia, signs of end organ dysfunction) likely of urological origin. (CT evidence of obstructing kidney stone with hydronephrosis and dirty UA). CVA tenderness positive. Normal lactic acid levels. -Admit patient to ICU -Vitals per protocol -Valdez placement, monitoring I's and O's -Blood pressure improved with 6 L bolus of normal saline. Blood pressure 115/67 at this time. Maintain MAP> 65. Central line/pressors if needed, consent obtained. -Continue IV fluids at 1 50 cc an hour -Received IV ceftriaxone in the ED. We will continue the same for now -IV Protonix ordered -Blood and urine cultures pending -Urologic consult appreciated -Nothing by mouth for possible stent placement -Replete electrolytes as needed #2 UTI with acute cystitis and pyelonephritis/left hydronephrosis due to obstructive uropathy -IV normal saline at 1 50 cc an hour -IV ceftriaxone daily -Blood and urine cultures pending -Continue morphine when necessary for pain -IV Zofran as needed for nausea -Nothing by mouth for possible stent placement -Urologic consult appreciated #3 LAURIE with metabolic acidosis due to obstructive uropathy(no baseline available ) -Patient on normal saline at 1 50 cc an hour -Creatinine from this morning pending -Plan for stent placement today -Avoid nephrotoxins -Recheck BeP later -Nephrology consult if renal function does not improve post stenting #4 Elevated troponin likely type II SC versus NSTEMI -No chest pain at this time. EKG showed inferior Q waves with right heart strain. -We will trend troponin and EKG -Patient started on aspirin, beta blockers held due to hypotension -On IV heparin -Echocardiogram ordered -Cardiology consult with Dr. Bhakta -CPKs/thyroid functions ordered #5 Elevated d-dimer/S1Q3T3 on EKG/Family history of DVT -IV heparin started -CTA could not be done due to kidney injury -VQ scan and bilateral Doppler ultrasounds ordered for a.m. -Cardiology consult with Dr. Bhakta DVT prophylaxis IV heparin Full code Medium/severe pain pathway Problem List: 1. Kidney stone on left side 2. LAURIE (acute kidney injury) 3. Elevated troponin Consult Acknowledgment - Thank you for your consult request. Elissa GREENBERG,[facility] 08/31/17 0944: Assessment/Plan Other Findings/Comments: Agree with above note and history and exam Seen and examined independently and discussed with correctional officer lieutenant and consultants 62 yo F with h/o nephrolithiasis and hepatic steatosis, presented to the ED for evaluation of left flank pain, malaise and fatigue for past 2 days. She reported generalized malaise, fatigue, low back pain, foul-smelling urine, lightheadedness with nausea and vomiting, nonbloody diarrhea with poor by mouth intake. General Appearance: well developed/nourished, alert, awake, mild distress Head: atraumatic, normal appearance Eyes: Bilateral: normal appearance. Ears, Nose, Throat: normal pharynx Neck: normal inspection, supple, full range of motion Respiratory: normal breath sounds, chest non-tender Cardiovascular: regular rate/rhythm Gastrointestinal: tenderness, cva tenderness, mild pain in the pelvic region Back: normal inspection Extremities: normal inspection, normal capillary refill ISSUES * Severe sepsis due to hydronephosis due to obstructive uropathy due to a large ureter stone * Multiple organ failure due to sepsis * Sig hepatomegaly with fatty liver with altered lfts aswell * Type 2 mi probably and to rule out ACS with sinus tachy with RV strain pattern in the ekg to rule out PE aswell * Sepsis of urological origin * LAURIE with sig acidosis due to obstructive uropathy and sepsis REC Urology to see and to go to the OR urgently today (Dr Clifford has seen the patient) Cardio to see for clearence and to eval for elevated trop etc Cont abx for now Valdez and monitor creat Fluid resusitation and watch for hypotension VQ and lower ext dopplers Gentle ivf for now as she appears to be adequately resusitated now ECHO NPO PPI Sub cut heparin for now Await cultures, follow troponin, ekg, creat and lytes Watch for chf and if so give lasix iv PT is critically ill ttx 40 mins Consult Acknowledgment - Thank you for your consult request.
[2017-08-31 07:53] LABS: ABSOLUTE BASOPHIL COUNT 0 /CUMM (0.0-0.2); ABSOLUTE EOSINOPHIL COUNT 0 /CUMM (0.0-0.7); ABSOLUTE GRANULOCYTE CT 13.4 /CUMM (1.4-6.5); ABSOLUTE LYMPH COUNT 0.9 /CUMM (1.2-3.4); ABSOLUTE MONOCYTE COUNT 0.3 /CUMM (0.10-0.60); BASOPHIL % 0 % (0.0-2.0); EOSINOPHIL % 0.2 % (0-5); GRANULOCYTE % 91.6 % (42.2-75.2); MEAN CORPUSCULAR HGB 31.5 PG (27.0-31.0); MEAN CORPUSCULAR HGB CONC 34.2 G/DL (33.0-37.0); MEAN CORPUSCULAR VOLUME 92.3 FL (81.0-99.0); PLATELET COUNT 78 /CUMM (130-400); RBC DISTRIBUTION WIDTH 13.2 % (11.5-14.5); RED BLOOD CELL CT 3.52 /CUMM (4.20-5.40)
[2017-08-31 08:18] LABS: PTT 62 SEC (25-37)
[2017-08-31 08:19] LABS: HEMATOCRIT 32.5 % (37-47); WHITE BLOOD CELL COUNT 14.6 /CUMM (4.8-10.8)
--- NOTE | 2017-08-31 09:07 | Cons- Urology ---
General Information and HPI Consulting Request Date of Consult: 08/31/17 Requested By: Giovani GREENBERG,[place] Reason for Consult: LEFT HYDRO. WITH ARF: FLANK PAIN Source of Information: patient, family, old records Exam Limitations: no limitations History of Present Illness: 63 YR OLD WITH KNOWN LEFT STONE FOR 2 MONTHS ADMITTED FOR LEFT COLIC, ELEVATED TROP WITH EKG CHANGES, ARF, DEHYDRATION. CT REVIEWED WITH PT/FAMILY AND RECOMMEND LEFT STENT TO MAXIMIZE RENAL FUNCTION IN LIGHT OF CRITICAL CONDITION WITH AGGRESSIVE HYDRATION. STENT AND SUBSEQUENT ESWL-STENT REMOVAL DISCUSSED WITH PT AND FAMILY, WITH RISKS/BENEFITS, AT LENGTH AND PT WISHES TO PROCEED. Allergies/Medications Allergies: Coded Allergies: No Known Allergies (08/30/17) Home Med List: Calcium Carb/Vitamin D3/Vit K1 (Calcium + D Soft Chewable Tab) 500 MG CALCIUM-1, 000 UNIT-40 MCG TAB.CHEW 2 TAB PO DAILY SUPPLEMENT (Reported) Multivitamin (Animal Chews) 1 EACH TAB.CHEW 2 TAB PO DAILY SUPPLEMENT ( Reported) Current Medications: Current Medications Sig/Sarah Start time Last Medication Dose Route Stop Time Status Admin Aspirin 81 MG DAILY 09/01 1000 AC PO Aspirin 81 MG DAILY 08/31 1000 DC PO Aspirin 0 .STK-MED ONE 08/31 0332 DC PO Aspirin 325 MG ONCE ONE 08/31 0315 DC 08/31 PO 08/31 316 0330 Ceftriaxone Sodium 1,000 MG DAILY 08/31 1000 AC IV Ceftriaxone Sodium 1,000 MG DAILY 08/31 1000 CAN IV Ceftriaxone Sodium 0 .STK-MED ONE 08/31 0109 DC .ROUTE Ceftriaxone Sodium 1,000 MG ONCE ONE 08/31 0015 DC 08/31 IV 08/31 0016 0149 Heparin Sodium 0 .STK-MED ONE 08/31 0017 DC (Porcine) .ROUTE Heparin Sodium 0 .STK-MED ONE 08/31 0010 DC (Porcine) .ROUTE Heparin Sodium 5,000 UNIT ONCE ONE 08/300 DC 08/31 (Porcine) IV 08/30 2231 0019 Heparin Sodium 25,000 UNIT Q24H 08/30 2230 DC 08/31 (Porcine) IV 0019 Sodium Chloride 500 ML Influenza Virus 0.5 ML ONCE ONE 08/31 0715 DC Vaccine IM 08/31 0716 Magnesium Sulfate 1 GM Q2H 08/31 0745 DC Dextrose/Water 100 ML IV 08/31 1144 Magnesium Sulfate 1 GM Q2H 08/31 0430 DC 08/31 Dextrose/Water 100 ML IV 08/31 08 0649 Morphine Sulfate 2 MG Q6P PRN 08/31 0830 AC IV Multivitamins 1 TAB DAILY 08/31 1000 AC PO Pantoprazole Sodium 40 MG DAILY 08/31 1000 AC IV Potassium Chloride 10 MEQ Q1H 08/31 0315 DC 08/31 IV 08/31 0416 0450 Sodium Chloride 1,000 ML Q6H 08/31 0515 AC 08/31 IV 08/31 1114 0530 Sodium Chloride 1,000 ML Q13H 08/31 0430 DC 08/31 IV 09/01 0009 0435 Sodium Chloride 1,000 ML BOLUS ONE 08/31 0300 DC 08/31 IV 08/31 0359 0330 Sodium Chloride 1,000 ML BOLUS ONE 08/30 2345 DC 08/31 IV 08/31 0044 0210 Sodium Chloride 1,000 ML BOLUS ONE 08/30 2145 DC 08/31 IV 08/30 2244 0001 Sodium Chloride 1,000 ML BOLUS ONE 08/30 2145 DC 08/30 IV 08/30 2244 2149 Sodium Chloride 1,000 ML BOLUS ONE 08/30 2030 DC 08/30 IV 08/30 2129 2107 Past History Medical History Blood Transfusion Hx: No Neurological: NONE EENT: NONE Cardiovascular: NONE Respiratory: NONE Gastrointestinal: NONE Hepatic: NONE Renal: KIDNEY STONE Musculoskeletal: NONE Psychiatric: NONE Endocrine: NONE Blood Disorders: NONE Cancer(s): NONE 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 Home Services at Home: None Smoking Status: Never Smoked ETOH Use: denies use Functional Ability ADLs Independent: dressing, eating, toileting, bathing. Ambulation: independent IADLs Independent: shopping, housework, finances, food prep, telephone, transportation , medication admin. Employment History Employment: Employed Retired? no Review of Systems Review of Systems Constitutional: Reports: fever, malaise, weakness. EENTM: Denies: no symptoms. Cardiovascular: Denies: no symptoms. Respiratory: Denies: no symptoms. GI: Reports: abdominal pain, nausea, vomiting. Genitourinary: Denies: no symptoms. Musculoskeletal: Denies: no symptoms. Skin: Denies: no symptoms. Exam & Diagnostic Data Vital Signs and I&O Vital Signs Date Time Temp Pulse Resp B/P B/P Pulse O2 O2 Flow FiO2 Mean Ox Delivery Rate 08/31 0532 96.6 84 16 97/57 98 Room Air Room Air 08/31 0435 90 16 99/52 99 Room Air 08/31 0345 96.6 89 16 91/51 99 Room Air 08/31 0254 98.9 99 20 88/63 96 Room Air 08/31 0211 98.6 102 20 85/48 94 Room Air 08/31 0030 104 22 99/58 94 Room Air 08/30 2341 98.2 106 22 99/55 94 08/30 2145 98.4 108 18 100/50 93 Room Air 08/30 1921 99.6 140 18 135/73 94 Room Air Intake & Output 08/31 1600 08/31 0800 08/31 0000 08/30 1600 08/30 0800 08/30 0000 Intake Total 6200 Output Total 57 Balance 6143 Intake, IV 6200 Output, Urine 57 Patient 146 lb 132 lb Weight Weight Bed scale Reported by Patient Measurement Method Physical Exam General Appearance: well developed/nourished, no apparent distress, alert, awake , mild distress Head: atraumatic Eyes: Bilateral: normal appearance. Neck: normal inspection Respiratory: normal breath sounds Cardiovascular: regular rate/rhythm Gastrointestinal: normal bowel sounds, soft, non-tender Back: CVA tenderness (L) Extremities: normal inspection Neurologic/Psych: no motor/sensory deficits, awake, alert, oriented x 3 Skin: intact, normal color, warm/dry Last 24 Hours of Labs: Laboratory Tests 08/31 08/31 08/31 0655 0655 0337 Chemistry Sodium (137 - 145 mmol/L) 137 Potassium (3.5 - 5.1 mmol/L) 4.1 Chloride (98 - 107 mmol/L) 110 H Carbon Dioxide (22 - 30 mmol/L) 16 L Anion Gap (5 - 16) 11 BUN (7 - 17 mg/dL) 41 H Creatinine (0.5 - 1.0 mg/dL) 3.7 H Estimated GFR (>60 ml/min) 12 L Glucose (65 - 99 mg/dL) 114 H Lactic Acid (0.7 - 2.1 mmol/L) 1.9 Cancelled Calcium (8.4 - 10.2 mg/dL) 6.2 L Phosphorus (2.5 - 4.5 mg/dL) 2.4 L Magnesium (1.6 - 2.3 mg/dL) 1.4 L Total Bilirubin (0.2 - 1.3 mg/dL) 0.4 AST (14 - 36 U/L) 203 H ALT (9 - 52 U/L) 184 H Troponin I (< 0.11 ng/ml) 0.24 *H Albumin (3.5 - 5.0 g/dL) 2.0 L Triglycerides (<150 mg/dL) 187 H Cholesterol (<200 MG/DL) 97 LDL Cholesterol, Calc (65 - 129 mg/dL) 44 L HDL Cholesterol (40 - 60 mg/dL) 16 L Cholesterol/HDL Ratio (0.00 - 4.23 %) 6 H Coagulation APTT (25 - 37 SEC) 62 H Hematology CBC w Diff MAN DIFF ORDERED WBC (4.8 - 10.8 /CUMM) 14.6 H RBC (4.20 - 5.40 /CUMM) 3.52 L Hgb (12.0 - 16.0 G/DL) 11.1 L Hct (37 - 47 %) 32.5 L MCV (81.0 - 99.0 FL) 92.3 MCH (27.0 - 31.0 PG) 31.5 H RDW (11.5 - 14.5 %) 13.2 Plt Count (130 - 400 /CUMM) 78 L MPV (7.4 - 10.4 FL) 9.0 Gran % (42.2 - 75.2 %) 91.6 H Lymphocytes % (20.5 - 51.1 %) 5.8 L Monocytes % (1.7 - 9.3 %) 2.4 Eosinophils % (0 - 5 %) 0.2 Basophils % (0.0 - 2.0 %) 0 Absolute Granulocytes (1.4 - 6.5 /CUMM) 13.4 H Segmented Neutrophils (42.2 - 75.2 %) 58 Band Neutrophils (0.0 - 5.0 %) 19 H Absolute Lymphocytes (1.2 - 3.4 /CUMM) 0.9 L Lymphocytes (20.5 - 51.1 %) 11 L Monocytes (1.7 - 9.3 %) 12 H Absolute Monocytes (0.10 - 0.60 /CUMM) 0.3 Absolute Eosinophils (0.0 - 0.7 /CUMM) 0 Absolute Basophils (0.0 - 0.2 /CUMM) 0 Platelet Estimate (ADEQUATE) DECREASED Normocytic RBCs VERIFIED Normochromic RBCs VERIFIED PUBS MCHC (33.0 - 37.0 G/DL) 34.2 08/31 08/31 08/31 0250 0208 0046 Chemistry BUN (7 - 17 mg/dL) 45 H Creatinine (0.5 - 1.0 mg/dL) 3.9 H Estimated GFR (>60 ml/min) 12 L BUN/Creatinine Ratio (7 - 25 %) 11.5 Lactic Acid (0.7 - 2.1 mmol/L) 1.6 Magnesium (1.6 - 2.3 mg/dL) 1.1 L Lactate Dehydrogenase (313 - 618 U/L) 461 Creatine Kinase (30 - 135 U/L) 46 Troponin I (< 0.11 ng/ml) 0.25 *H TSH (0.270 - 4.200 uIU/mL) 0.713 Free T4 (0.78 - 2.44 ng/dL) 1.48 Urines Urine Osmolality (300 - 1000 MOSM/KG) 282 L Ur Random Creatinine (mg/dL) 210.5 Ur Random Sodium (30 - 90 mmol/L) 76 Ur Random Potassium (mmol/L) 32.2 Fraction Sodium Excret (<1% %) 1.1 H 08/305 2250 Coagulation PT Cancelled INR Cancelled APTT Cancelled Urines Urinalysis HEAVY H Urine Color (YEL,AMB,STR) BROWN H Urine Clarity (CLEAR) TURBD H Urine pH (5.0 - 8.0) 6.5 Ur Specific Colver (1.001 - 1.035) 1.025 Urine Protein (NEG,<30 MG/DL) >=300 H Urine Ketones (NEG) TRACE H Urine Nitrite (NEG) POS H Urine Bilirubin (NEG) NEG@ICTO Urine Urobilinogen (0.1 - 1.0 EU/dl) 1.0 Ur Leukocyte Esterase (NEG) LARGE H Ur Microscopic SEDIMENT EXAMINED Urine RBC (0 - 5 /HPF) >75 H Urine WBC (0 - 2 /HPF) > 75 H Ur Epithelial Cells (NONE,FEW) FEW Urine Bacteria (NEG/NONE) MANY H Urine Hemoglobin (NEG) LARGE H Urine Glucose (N MG/DL) NEG 08/30 2055 Chemistry Sodium (137 - 145 mmol/L) 135 L Potassium (3.5 - 5.1 mmol/L) 3.0 L Chloride (98 - 107 mmol/L) 98 Carbon Dioxide (22 - 30 mmol/L) 21 L Anion Gap (5 - 16) 16 BUN (7 - 17 mg/dL) 51 H Creatinine (0.5 - 1.0 mg/dL) 4.0 H Estimated GFR (>60 ml/min) 11 L BUN/Creatinine Ratio (7 - 25 %) 12.8 Glucose (65 - 99 mg/dL) 106 H Calcium (8.4 - 10.2 mg/dL) 8.7 Total Bilirubin (0.2 - 1.3 mg/dL) 0.6 AST (14 - 36 U/L) 31 ALT (9 - 52 U/L) 39 Alkaline Phosphatase (<127 U/L) 196 H Troponin I (< 0.11 ng/ml) 0.21 *H Total Protein (6.3 - 8.2 g/dL) 5.9 L Albumin (3.5 - 5.0 g/dL) 3.0 L Globulin (1.9 - 4.2 gm/dL) 2.9 Albumin/Globulin Ratio (1.1 - 2.2 %) 1.0 L Coagulation PT (9.4 - 12.5 SEC) 13.6 H INR (0.90 - 1.19) 1.30 H APTT (25 - 37 SEC) 26 D-Dimer High Sensitivty (0 - 243 ng/ml) 9356 H Hematology CBC w Diff MAN DIFF ORDERED WBC (4.8 - 10.8 /CUMM) 8.7 RBC (4.20 - 5.40 /CUMM) 4.33 Hgb (12.0 - 16.0 G/DL) 13.5 Hct (37 - 47 %) 39.9 MCV (81.0 - 99.0 FL) 92.1 MCH (27.0 - 31.0 PG) 31.1 H RDW (11.5 - 14.5 %) 12.8 Plt Count (130 - 400 /CUMM) 123 L MPV (7.4 - 10.4 FL) 7.6 Gran % (42.2 - 75.2 %) 97.0 H Lymphocytes % (20.5 - 51.1 %) 2.6 L Monocytes % (1.7 - 9.3 %) 0.3 L Eosinophils % (0 - 5 %) 0.1 Basophils % (0.0 - 2.0 %) 0 Absolute Granulocytes (1.4 - 6.5 /CUMM) 8.4 H Segmented Neutrophils (42.2 - 75.2 %) 86 H Band Neutrophils (0.0 - 5.0 %) 9 H Absolute Lymphocytes (1.2 - 3.4 /CUMM) 0.2 L Lymphocytes (20.5 - 51.1 %) 2 L Monocytes (1.7 - 9.3 %) 3 Absolute Monocytes (0.10 - 0.60 /CUMM) 0 L Absolute Eosinophils (0.0 - 0.7 /CUMM) 0 Absolute Basophils (0.0 - 0.2 /CUMM) 0 Platelet Estimate (ADEQUATE) DECREASED Normocytic RBCs VERIFIED Normochromic RBCs VERIFIED PUBS MCHC (33.0 - 37.0 G/DL) 33.8 Imaging Results: PATIENT: KRISTI PINK PRESENT AGE: 62 PATIENT ACCOUNT NO: [id number] : 55 LOCATION: [facility] ORDERING PHYSICIAN: Florian TIM SERVICE DATE: 08/30/17 EXAM TYPE: CAT - CT ABD & PELVIS W/O IV CONTRAS EXAMINATION: CT ABDOMEN AND PELVIS WITHOUT CONTRAST CLINICAL INFORMATION: Left back pain. COMPARISON: None. TECHNIQUE: Multidetector volumetric imaging was performed from the superior aspect of the liver through the pubic symphysis. Sagittal and coronal reformatted images were obtained on the technologist's workstation. DLP: 277.63 mGy-cm FINDINGS: LUNG BASES: The visualized lung bases are unremarkable. LIVER, GALLBLADDER, AND BILIARY TREE: There is hepatomegaly. Liver measures 22.4 cm superior inferior. Diffuse low attenuation of liver parenchyma due to fatty change. No focal liver lesion. No intrahepatic bile duct dilatation. There are tiny calcified gallstones layering dependently in the gallbladder. No gallbladder wall thickening or edema around the gallbladder. No bile duct dilatation. PANCREAS: Unremarkable. SPLEEN: Unremarkable. ADRENAL GLANDS: Unremarkable. KIDNEYS AND URETERS: There is significant hydronephrosis of left kidney with distention of renal pelvises and calyces and edema around the kidney. This is due to an obstructing stone in the proximal left ureter at the ureteropelvic junction. The stone measures 6 x 4 mm. There is no additional 2 mm nonobstructive stone and 4 mm nonobstructive stone in the lower pole of left kidney. Right kidney and ureter are normal. BLADDER: Unremarkable. GASTROINTESTINAL TRACT: No acute change of the bowel. No bowel obstruction. No bowel wall thickening or edema. Moderate amount of stool in the colon. There are some flecks of high density material scattered throughout the stool in the right colon and transverse colon, or lead ingested material. The appendix is not visualized. No inflammation the mesentery right lower quadrant. Small bowel loops unremarkable. ABDOMINAL WALL: No significant hernia is appreciated. LYMPH NODES: Normal. VASCULAR: Unremarkable. PELVIC VISCERA: Unremarkable. OSSEOUS STRUCTURES: Unremarkable. IMPRESSION: 1. Hydronephrosis of the left kidney due to an obstructing 6 x 4 mm stone at the ureteropelvic junction. 2 additional small nonobstructive calculi in left kidney. 2. Cholelithiasis. 3. Hepatomegaly with diffuse fatty change of liver. Assessment/Plan Assessment/Plan LEFT OBSTRUCTED KIDNEY WITH DEHYDRATION RESULTING IN ARF: NEED LEFT STENT VICTORINO Copies To: Rick Clifford MD Consult Acknowledgment - Thank you for your consult request. Attending MD Review Statement Attending Statement Attending MD Statement: examined this patient, discuss w/resident/PA/ELASTIC ASSEMBLER Attending Assessment/Plan: PT WITH LEFT URETER STONE-OBSTRUCTION. NEEDS CARDIAC EVAL. STOP HEPARIN, STENT TODAY.
--- NOTE | 2017-08-31 09:40 | Cons- Cardiology ---
General Information and HPI Consulting Request Date of Consult: 08/31/17 Requested By: Giovani GREENBERG,[place] Reason for Consult: Positive troponin in the setting of hydronephrosis and sepsis of urologic origin. Source of Information: patient, old records Exam Limitations: no limitations History of Present Illness: The patient is a 62-year-old female with a known kidney stone. She has had 2 days of left flank pain, malaise, fatigue and fever. She came to the emergency room and was found to be mildly hypotensive and her initial troponin was 0.21. Her urine was dirty and she had hydronephrosis of the left kidney due to an obstructing 6 x 4 mm stone at the ureteropelvic junction. The patient has no history of heart disease, hypertension, diabetes. She is on no regular medications at home. The urine shows bacteria and hemoglobin, blood cultures are still pending. She is to go to the OR momentarily for a ureteral stent. The patient is not having any chest pain, shortness of breath, palpitations or other cardiac symptoms. She has no past history of heart disease as noted. Her EKG did not show any acute changes Allergies/Medications Allergies: Coded Allergies: No Known Allergies (08/30/17) Home Med List: Calcium Carb/Vitamin D3/Vit K1 (Calcium + D Soft Chewable Tab) 500 MG CALCIUM-1, 000 UNIT-40 MCG TAB.CHEW 2 TAB PO DAILY SUPPLEMENT (Reported) Multivitamin (Animal Chews) 1 EACH TAB.CHEW 2 TAB PO DAILY SUPPLEMENT ( Reported) Current Medications: Current Medications Sig/Sarah Start time Last Medication Dose Route Stop Time Status Admin Aspirin 81 MG DAILY 09/01 1000 AC PO Aspirin 81 MG DAILY 08/31 1000 DC PO Aspirin 0 .STK-MED ONE 08/31 0332 DC PO Aspirin 325 MG ONCE ONE 08/31 0315 DC 08/31 PO 08/31 316 0330 Ceftriaxone Sodium 1,000 MG DAILY 08/31 1000 AC IV Ceftriaxone Sodium 1,000 MG DAILY 08/31 1000 CAN IV Ceftriaxone Sodium 0 .STK-MED ONE 08/31 0109 DC .ROUTE Ceftriaxone Sodium 1,000 MG ONCE ONE 08/31 0015 DC 08/31 IV 08/31 0016 0149 Heparin Sodium 0 .STK-MED ONE 08/31 0017 DC (Porcine) .ROUTE Heparin Sodium 0 .STK-MED ONE 08/31 0010 DC (Porcine) .ROUTE Heparin Sodium 5,000 UNIT ONCE ONE 08/30 2230 DC 08/31 (Porcine) IV 08/30 223 0019 Heparin Sodium 25,000 UNIT Q24H 08/30 2230 DC 08/31 (Porcine) IV 0019 Sodium Chloride 500 ML Influenza Virus 0.5 ML ONCE ONE 08/31 0715 DC Vaccine IM 08/31 0716 Magnesium Sulfate 1 GM Q2H 08/31 0745 DC Dextrose/Water 100 ML IV 08/31 1144 Magnesium Sulfate 1 GM Q2H 08/31 0430 DC 08/31 Dextrose/Water 100 ML IV 08/31 0829 0649 Morphine Sulfate 2 MG Q6P PRN 08/31 0830 AC IV Multivitamins 1 TAB DAILY 08/31 1000 AC PO Pantoprazole Sodium 40 MG DAILY 08/31 1000 AC IV Potassium Chloride 10 MEQ Q1H 08/31 0315 DC 08/31 IV 08/31 0416 0450 Sodium Chloride 1,000 ML Q6H 08/31 0515 AC 08/31 IV 08/31 1114 0530 Sodium Chloride 1,000 ML Q13H 08/31 0430 DC 08/31 IV 09/01 0009 0435 Sodium Chloride 1,000 ML BOLUS ONE 08/31 0300 DC 08/31 IV 08/31 0359 0330 Sodium Chloride 1,000 ML BOLUS ONE 08/30 2345 DC 08/31 IV 08/31 0044 0210 Sodium Chloride 1,000 ML BOLUS ONE 08/30 2145 DC 08/31 IV 08/30 2244 0001 Sodium Chloride 1,000 ML BOLUS ONE 08/30 2145 DC 08/30 IV 08/30 224 2149 Sodium Chloride 1,000 ML BOLUS ONE 08/30 2030 DC 08/30 IV 08/30 2129 2107 Review of Systems Review of Systems: No other complaints in the review of systems. Past History Travel History Traveled to [place] past 21 day No Medical History Blood Transfusion Hx: No Neurological: NONE EENT: NONE Cardiovascular: NONE Respiratory: NONE Gastrointestinal: NONE Hepatic: NONE Renal: KIDNEY STONE Musculoskeletal: NONE Psychiatric: NONE Endocrine: NONE Blood Disorders: NONE Cancer(s): NONE MANAGEMENT TRAINER/Reproductive: NONE Surgical History Surgical History: non-contributory Psychosocial History Where Do You Live? Home Services at Home: None Smoking Status: Never Smoked ETOH Use: denies use Functional Ability ADLs Independent: dressing, eating, toileting, bathing. Ambulation: independent IADLs Independent: shopping, housework, finances, food prep, telephone, transportation , medication admin. Employment History Employment: Employed Exam & Diagnostic Data Vital Signs and I&O Vital Signs Date Time Temp Pulse Resp B/P B/P Pulse O2 O2 Flow FiO2 Mean Ox Delivery Rate 08/31 0532 96.6 84 16 97/57 98 Room Air Room Air 08/31 0435 90 16 99/52 99 Room Air 08/31 0345 96.6 89 16 91/51 99 Room Air 08/31 0254 98.9 99 20 88/63 96 Room Air 08/31 0211 98.6 102 20 85/48 94 Room Air 08/31 0030 104 22 99/58 94 Room Air 08/30 2341 98.2 106 22 99/55 94 08/30 2145 98.4 108 18 100/50 93 Room Air 08/30 1921 99.6 140 18 135/73 94 Room Air Intake & Output 08/31 1600 08/31 0800 08/31 0000 08/30 1600 08/30 0800 08/30 0000 Intake Total 6980 Output Total 117 Balance 6863 Intake, IV 6980 Intake, Oral 0 Number 2 Bowel Movements Output, Urine 117 Patient 146 lb 132 lb Weight Weight Bed scale Reported by Patient Measurement Method Physical Exam: Well-developed well-nourished middle-aged female in no acute distress at this time HEENT exam normal Neck veins not distended Carotids normal Chest clear Heart regular rhythm, no murmurs Abdomen benign Extremities no edema Labs/Bladimir Results: Laboratory Tests 08/31 08/31 08/31 0655 0655 0337 Chemistry Sodium (137 - 145 mmol/L) 137 Potassium (3.5 - 5.1 mmol/L) 4.1 Chloride (98 - 107 mmol/L) 110 H Carbon Dioxide (22 - 30 mmol/L) 16 L Anion Gap (5 - 16) 11 BUN (7 - 17 mg/dL) 41 H Creatinine (0.5 - 1.0 mg/dL) 3.7 H Estimated GFR (>60 ml/min) 12 L Glucose (65 - 99 mg/dL) 114 H Lactic Acid (0.7 - 2.1 mmol/L) 1.9 Cancelled Calcium (8.4 - 10.2 mg/dL) 6.2 L Phosphorus (2.5 - 4.5 mg/dL) 2.4 L Magnesium (1.6 - 2.3 mg/dL) 1.4 L Total Bilirubin (0.2 - 1.3 mg/dL) 0.4 AST (14 - 36 U/L) 203 H ALT (9 - 52 U/L) 184 H Troponin I (< 0.11 ng/ml) 0.24 *H Albumin (3.5 - 5.0 g/dL) 2.0 L Triglycerides (<150 mg/dL) 187 H Cholesterol (<200 MG/DL) 97 LDL Cholesterol, Calc (65 - 129 mg/dL) 44 L HDL Cholesterol (40 - 60 mg/dL) 16 L Cholesterol/HDL Ratio (0.00 - 4.23 %) 6 H Coagulation APTT (25 - 37 SEC) 62 H Hematology CBC w Diff MAN DIFF ORDERED WBC (4.8 - 10.8 /CUMM) 14.6 H RBC (4.20 - 5.40 /CUMM) 3.52 L Hgb (12.0 - 16.0 G/DL) 11.1 L Hct (37 - 47 %) 32.5 L MCV (81.0 - 99.0 FL) 92.3 MCH (27.0 - 31.0 PG) 31.5 H RDW (11.5 - 14.5 %) 13.2 Plt Count (130 - 400 /CUMM) 78 L MPV (7.4 - 10.4 FL) 9.0 Gran % (42.2 - 75.2 %) 91.6 H Lymphocytes % (20.5 - 51.1 %) 5.8 L Monocytes % (1.7 - 9.3 %) 2.4 Eosinophils % (0 - 5 %) 0.2 Basophils % (0.0 - 2.0 %) 0 Absolute Granulocytes (1.4 - 6.5 /CUMM) 13.4 H Segmented Neutrophils (42.2 - 75.2 %) 58 Band Neutrophils (0.0 - 5.0 %) 19 H Absolute Lymphocytes (1.2 - 3.4 /CUMM) 0.9 L Lymphocytes (20.5 - 51.1 %) 11 L Monocytes (1.7 - 9.3 %) 12 H Absolute Monocytes (0.10 - 0.60 /CUMM) 0.3 Absolute Eosinophils (0.0 - 0.7 /CUMM) 0 Absolute Basophils (0.0 - 0.2 /CUMM) 0 Platelet Estimate (ADEQUATE) DECREASED Normocytic RBCs VERIFIED Normochromic RBCs VERIFIED PUBS MCHC (33.0 - 37.0 G/DL) 34.2 08/31 08/31 08/31 0250 0208 0046 Chemistry BUN (7 - 17 mg/dL) 45 H Creatinine (0.5 - 1.0 mg/dL) 3.9 H Estimated GFR (>60 ml/min) 12 L BUN/Creatinine Ratio (7 - 25 %) 11.5 Lactic Acid (0.7 - 2.1 mmol/L) 1.6 Magnesium (1.6 - 2.3 mg/dL) 1.1 L Lactate Dehydrogenase (313 - 618 U/L) 461 Creatine Kinase (30 - 135 U/L) 46 Troponin I (< 0.11 ng/ml) 0.25 *H TSH (0.270 - 4.200 uIU/mL) 0.713 Free T4 (0.78 - 2.44 ng/dL) 1.48 Urines Urine Osmolality (300 - 1000 MOSM/KG) 282 L Ur Random Creatinine (mg/dL) 210.5 Ur Random Sodium (30 - 90 mmol/L) 76 Ur Random Potassium (mmol/L) 32.2 Fraction Sodium Excret (<1% %) 1.1 H 08/30 08/30 2345 2250 Coagulation PT Cancelled INR Cancelled APTT Cancelled Urines Urinalysis HEAVY H Urine Color (YEL,AMB,STR) BROWN H Urine Clarity (CLEAR) TURBD H Urine pH (5.0 - 8.0) 6.5 Ur Specific [place] (1.001 - 1.035) 1.025 Urine Protein (NEG,<30 MG/DL) >=300 H Urine Ketones (NEG) TRACE H Urine Nitrite (NEG) POS H Urine Bilirubin (NEG) NEG@ICTO Urine Urobilinogen (0.1 - 1.0 EU/dl) 1.0 Ur Leukocyte Esterase (NEG) LARGE H Ur Microscopic SEDIMENT EXAMINED Urine RBC (0 - 5 /HPF) >75 H Urine WBC (0 - 2 /HPF) > 75 H Ur Epithelial Cells (NONE,FEW) FEW Urine Bacteria (NEG/NONE) MANY H Urine Hemoglobin (NEG) LARGE H Urine Glucose (N MG/DL) NEG 08/30 2055 Chemistry Sodium (137 - 145 mmol/L) 135 L Potassium (3.5 - 5.1 mmol/L) 3.0 L Chloride (98 - 107 mmol/L) 98 Carbon Dioxide (22 - 30 mmol/L) 21 L Anion Gap (5 - 16) 16 BUN (7 - 17 mg/dL) 51 H Creatinine (0.5 - 1.0 mg/dL) 4.0 H Estimated GFR (>60 ml/min) 11 L BUN/Creatinine Ratio (7 - 25 %) 12.8 Glucose (65 - 99 mg/dL) 106 H Calcium (8.4 - 10.2 mg/dL) 8.7 Total Bilirubin (0.2 - 1.3 mg/dL) 0.6 AST (14 - 36 U/L) 31 ALT (9 - 52 U/L) 39 Alkaline Phosphatase (<127 U/L) 196 H Troponin I (< 0.11 ng/ml) 0.21 *H Total Protein (6.3 - 8.2 g/dL) 5.9 L Albumin (3.5 - 5.0 g/dL) 3.0 L Globulin (1.9 - 4.2 gm/dL) 2.9 Albumin/Globulin Ratio (1.1 - 2.2 %) 1.0 L Coagulation PT (9.4 - 12.5 SEC) 13.6 H INR (0.90 - 1.19) 1.30 H APTT (25 - 37 SEC) 26 D-Dimer High Sensitivty (0 - 243 ng/ml) 9356 H Hematology CBC w Diff MAN DIFF ORDERED WBC (4.8 - 10.8 /CUMM) 8.7 RBC (4.20 - 5.40 /CUMM) 4.33 Hgb (12.0 - 16.0 G/DL) 13.5 Hct (37 - 47 %) 39.9 MCV (81.0 - 99.0 FL) 92.1 MCH (27.0 - 31.0 PG) 31.1 H RDW (11.5 - 14.5 %) 12.8 Plt Count (130 - 400 /CUMM) 123 L MPV (7.4 - 10.4 FL) 7.6 Gran % (42.2 - 75.2 %) 97.0 H Lymphocytes % (20.5 - 51.1 %) 2.6 L Monocytes % (1.7 - 9.3 %) 0.3 L Eosinophils % (0 - 5 %) 0.1 Basophils % (0.0 - 2.0 %) 0 Absolute Granulocytes (1.4 - 6.5 /CUMM) 8.4 H Segmented Neutrophils (42.2 - 75.2 %) 86 H Band Neutrophils (0.0 - 5.0 %) 9 H Absolute Lymphocytes (1.2 - 3.4 /CUMM) 0.2 L Lymphocytes (20.5 - 51.1 %) 2 L Monocytes (1.7 - 9.3 %) 3 Absolute Monocytes (0.10 - 0.60 /CUMM) 0 L Absolute Eosinophils (0.0 - 0.7 /CUMM) 0 Absolute Basophils (0.0 - 0.2 /CUMM) 0 Platelet Estimate (ADEQUATE) DECREASED Normocytic RBCs VERIFIED Normochromic RBCs VERIFIED PUBS MCHC (33.0 - 37.0 G/DL) 33.8 Diagnostic Data EKG Results Initial EKG shows sinus tachycardia rate of 135 with small inferior Q waves and no acute changes. Repeat EKG this morning shows sinus rhythm rate of 80 with small inferior Q waves and probably is within normal limits. CXR Results PATIENT: KRISTI PINK PRESENT AGE: 62 PATIENT ACCOUNT NO: [id number] : 55 LOCATION: [facility] ORDERING PHYSICIAN: Florian TIM SERVICE DATE: 08/30/17 EXAM TYPE: RAD - XRY-CHEST XRAY, TWO VIEWS EXAMINATION: XR CHEST CLINICAL INFORMATION: Cough, fever COMPARISON: None TECHNIQUE: 2 views of the chest were obtained. FINDINGS: No significant abnormality is noted involving the heart, lungs, mediastinum, bony thorax or soft tissues. IMPRESSION: No acute abnormality of the chest. DICTATED BY: Dami Rodriguez MD DATE/TIME DICTATED:08/30/172227 MANAGER REGISTRATION:CHARISMA DATE/TIME TRANSCRIBED:08/30/172227 CONFIDENTIAL, DO NOT COPY WITHOUT APPROPRIATE AUTHORIZATION. <Electronically signed in Other Vendor System> SIGNED BY: Dami Rodriguez MD 08/30/172231 Other Results IMPRESSION: 1. Hydronephrosis of the left kidney due to an obstructing 6 x 4 mm stone at the ureteropelvic junction. 2 additional small nonobstructive calculi in left kidney. CONCLUSIONS No significant chamber abnormalities. No significant valve abnormalities. Normal transthoracic echocardiogram. Physiologic valvular regurgitation. Pulmonary artery systolic pressure is upper normal limits. Andrea Bhakta M.D. (Electronically Signed) Final Date: 31 August 2017 13:38 2. Cholelithiasis. 3. Hepatomegaly with diffuse fatty change of liver. DICTATED BY: Dami Rodriguez MD DATE/TIME DICTATED:08/30/172231 MANAGER REGISTRATION:CHARISMA DATE/TIME TRANSCRIBED:08/30/172231 CONFIDENTIAL, DO NOT COPY WITHOUT APPROPRIATE AUTHORIZATION. Assessment/Plan Assessment/Plan The patient is 62-year-old female who presents with sepsis of urologic origin, hydronephrosis, kidney stone. In this setting she had initial sinus tachycardia and mildly positive cardiac enzymes with a peak of 0.25 troponin. There are no acute EKG changes and no cardiac symptoms. There are small inferior Q waves but I suspect this is a normal variant in this patient with no cardiac history. Her echocardiogram did not show any regional wall motion abnormalities and was essentially normal. This presentation represents a type II myocardial infarction or supply/demand mismatch based on acute medical illness. There is no evidence of underlying coronary artery disease. This patient can undergo her urgently needed procedure at this time. I would follow up with a postoperative electrocardiogram. She can be watched on the monitor overnight and if stable then telemetry can be discontinued. Consult Acknowledgment - Thank you for your consult request.
--- NOTE | 2017-08-31 11:31 | NUCLEAR MEDICINE REPORT ---
EXAMINATION: PULMONARY VENTILATION PERFUSION STUDY CLINICAL INFORMATION: Elevated d-dimer and EKG changes. COMPARISON: Chest x-ray 08/30/2017. TECHNIQUE: Serial gamma scintillation camera images were obtained over the posterior chest during the single breath, equilibrium rebreathing and washout of 14.9 mCi Xe 133 gas. The patient then received 4.2 mCi Tc-99m MAA intravenously and a 6-view perfusion study was performed. FINDINGS: Ventilation images: On the single breath and equilibrium images there is homogeneous distribution of gas bilaterally. During the washout phase there is some retention in the left upper lobe. Perfusion images: No segmental perfusion defects are present. There is homogeneous distribution of activity bilaterally. There are no focal anatomic appearing perfusion defects present. IMPRESSION: 1. Ventilation perfusion scan has very low probability for pulmonary embolus.
--- NOTE | 2017-08-31 13:26 | RADIOLOGY REPORT ---
EXAMINATION: XR KIDNEYS, URETER, BLADDER CLINICAL INDICATION: Left ureteral stent placement. Postoperative. COMPARISON: CT images of abdomen pelvis from 08/30/2017 TECHNIQUE: AP view of the abdomen. FINDINGS: Cholelithiasis. Bowel gas pattern is normal. Correlate for history of recent use of iodinated contrast (e.g., for ureterography) since there is subtle hyperdensity in the expected region of the lower pole calyces of the left kidney and urinary bladder. The left ureteral stent is in satisfactory position. Its proximal loop is at the level of the renal pelvis and distal loop is at the level of the bladder. There are no stones identified along the surface of the stent. Multiple phleboliths are present within the pelvis. No acute osseous abnormality. IMPRESSION: Left ureteral stent is in satisfactory position.
--- NOTE | 2017-08-31 13:39 | ECHOCARDIOGRAM REPORT ---
KRISTI PINK Age: 62 : 1955 Gender: F Exam Date: 08/31/2017 08:38 Exam Location: [facility] Ht (in): 59 Wt (lb): 132 BSA: 1.60 BP: 115 / 67 Ordering Physician: Beatriz Amaya MD Referring Physician: Beatriz Amaya MD Technologist: Fidel Duarte [facility] Room Number: 104 Indications: CONGENITAL HEART DISEASE Rhythm: Sinus Technical Quality: Good FINDINGS Left Ventricle Normal left ventricular size, wall thickness and systolic function with no obvious regional wall motion abnormalities. Normal left ventricular diastolic filling pattern for age. The ejection fraction is visually estimated at >65 %. Right Ventricle The right ventricle is normal in size and function. Right Atrium The right atrium is normal in size. Left Atrium The left atrium is normal in size. The interatrial septum is intact. Mitral Valve The mitral valve is normal in structure and function. There is rrace to mild mitral regurgitation. Aortic Valve Structurally normal aortic valve without significant sclerosis or stenosis. There is no aortic regurgitation. Tricuspid Valve The tricuspid valve is normal in structure and function. There is trace to mild tricuspid regurgitation. Pulmonary artery systolic pressure is upper normal limits. Pulmonic Valve Structurally normal pulmonic valve. There is no pulmonic regurgitation. Pericardium Normal pericardium without effusion. No pleural effusion. Great Vessels Normal aortic root dimension. The aortic arch and great vessels are well seen and are normal. CONCLUSIONS No significant chamber abnormalities. No significant valve abnormalities. Normal transthoracic echocardiogram. Physiologic valvular regurgitation. Pulmonary artery systolic pressure is upper normal limits. Andrea Bhakta M.D. (Electronically Signed) Final Date: 31 August 2017 13:38 MEASUREMENTS (Male / Female) Normal Values 2D ECHO LV Diastolic Diameter PLAX 3.7 cm 4.2 - 5.9 / 3.9 - 5.3 cm LV Systolic Diameter PLAX 2.8 cm 2.1 - 4.0 cm LV Fractional Shortening PLAX 24.3 % 25 - 46 % LV Ejection Fraction 2D Teich 49.2 % IVS Diastolic Thickness 0.9 cm LVPW Diastolic Thickness 1.0 cm LV Relative Wall Thickness 0.5 RV Internal Dim ED PLAX 2.6 cm 1.9 - 3.8 cm LVOT Diameter 1.7 cm Aortic Root Diameter 2.3 cm LA Systolic Diameter LX 2.3 cm 3.0 - 4.0 / 2.7 - 3.8 cm Ascending Aorta Diameter 2.8 cm DOPPLER AV Peak Velocity 91.0 cm/s AV Peak Gradient 3.3 mmHg AV Mean Velocity 71.1 cm/s AV Mean Gradient 2.0 mmHg AV Velocity Time Integral 19.4 cm LVOT Peak Velocity 74.4 cm/s LVOT Peak Gradient 2.2 mmHg LVOT Mean Velocity 51.3 cm/s LVOT Mean Gradient 1.0 mmHg LVOT Velocity Time Integral 17.1 cm LVOT Stroke Volume 38.8 cm AV Area Cont Eq vti 2.0 cm AV Area Cont Eq pk 1.9 cm MV Peak Velocity 81.0 cm/s MV Peak Gradient 2.6 mmHg MV Mean Velocity 56.2 cm/s MV Mean Gradient 1.0 mmHg Mitral E Point Velocity 72.1 cm/s Mitral A Point Velocity 62.7 cm/s Mitral E to A Ratio 1.1 MV PHT Velocity 90.2 cm/s MV Deceleration Angelina 502.0 cm/s MV Pressure Half Time 53.9 ms MV Area PHT 4.1 cm MV Deceleration Time 155.0 ms MR Peak Velocity 423.0 cm/s MR Peak Gradient 71.6 mmHg TR Peak Velocity 277.0 cm/s TR Peak Gradient 30.7 mmHg Right Atrial Pressure 10.0 mmHg Pulmonary Artery Systolic Pressu 40.7 mmHg Right Ventricular Systolic Press 40.7 mmHg PV Peak Velocity 66.2 cm/s PV Peak Gradient 1.8 mmHg PV Mean Velocity 53.0 cm/s PV Mean Gradient 1.0 mmHg PV Velocity Time Integral 16.0 cm LV E' Lateral Velocity 9.7 cm/s Mitral E to LV E' Lateral Ratio 7.5 LV E' Septal Velocity 8.7 cm/s Mitral E to LV E' Septal Ratio 8.3
[2017-08-31 16:00] VITALS: BP 114/68
[2017-08-31 23:00] VITALS: BP 102/60
[2017-09-01 05:58] LABS: ABSOLUTE BASOPHIL COUNT 0 /CUMM (0.0-0.2); ABSOLUTE EOSINOPHIL COUNT 0 /CUMM (0.0-0.7); ABSOLUTE GRANULOCYTE CT 12.6 /CUMM (1.4-6.5); ABSOLUTE MONOCYTE COUNT 0.8 /CUMM (0.10-0.60); BASOPHIL % 0.1 % (0.0-2.0); EOSINOPHIL % 0.2 % (0-5); GRANULOCYTE % 87.2 % (42.2-75.2); HEMATOCRIT 34.9 % (37-47); MEAN CORPUSCULAR HGB CONC 33.7 G/DL (33.0-37.0); MEAN CORPUSCULAR VOLUME 92.1 FL (81.0-99.0); MEAN PLATELET VOLUME 8.8 FL (7.4-10.4); PLATELET COUNT 113 /CUMM (130-400); RBC DISTRIBUTION WIDTH 13.3 % (11.5-14.5); RED BLOOD CELL CT 3.79 /CUMM (4.20-5.40); WHITE BLOOD CELL COUNT 14.4 /CUMM (4.8-10.8)
[2017-09-01 08:00] VITALS: BP 104/56
--- NOTE | 2017-09-01 08:48 | PN- Resident CRCU ---
Subjective HPI/CRCU Issues: urosepsis due to obtructive stones + troponin 24 Hour Events: BP 110-120/55-72 , 95% on room air, 24 input 2662, output 2100 feeling better today, cr still 3.7, overally clinical condition improved Objective Vital Signs & I&O Last 8 Hrs of Vitals and I&O: . Exam General Appearance: well developed/nourished, no apparent distress, alert, awake , comfortable Respiratory: normal breath sounds, chest non-tender Cardiovascular: regular rate/rhythm Gastrointestinal: normal bowel sounds, soft Extremities: left sided UE edema due to IV fluids Current Medications: Current Medications Sig/Sarah Start time Last Medication Dose Route Stop Time Status Admin Aspirin 81 MG DAILY 09/01 1000 AC 09/03 PO 0921 Atorvastatin Calcium 80 MG 1700 09/01 1700 AC 09/03 PO 1652 Ceftriaxone Sodium 1,000 MG DAILY 08/31 1000 AC 09/03 IV 0921 Furosemide 40 MG ONCE ONE 09/03 1745 CAN IV 09/03 1746 Heparin Sodium 5,000 UNIT Q8 09/02 1400 AC 09/02 (Porcine) SC 1640 Influenza Virus 0.5 ML .STK-MED ONE 09/03 1647 DC Vaccine IM 09/03 1648 Magnesium Oxide 400 MG ONE ONE 09/03 0930 DC 09/03 PO 09/03 0931 0921 Magnesium Sulfate 1 GM ONCE ONE 09/03 0915 CAN Dextrose/Water 100 ML IV 09/03 1314 Morphine Sulfate 2 MG Q6P PRN 08/31 0830 AC IV Multivitamins 1 TAB DAILY 08/31 1000 AC 09/03 PO 0921 Potassium Chloride 40 MEQ ONCE ONE 09/03 0915 DC 09/03 PO 09/03 0916 0921 Impression/Plan Impression/Problem List Impression: 62 yo F with h/o nephrolithiasis and hepatic steatosis, presented to the ED for evaluation of left flank pain, malaise and fatigue for past 2 days. She reported generalized malaise, fatigue, low back pain, foul-smelling urine, lightheadedness with nausea and vomiting, nonbloody diarrhea with poor by mouth intake. At admission , Vitals: afebrile, HR 90-110's, BP 135/73 -> 99/52 with fluids, sats 98% RA. Labs: no leukocytosis, bands 9, Plt 123, INR 1.30, D-dimer 9356, Na 135, K 3.0, bicarb 21, BUN 51, creat 4.0 (baseline not known), glucose 106, lactic acid 1.6, LFTs normal, except for elevated Alk phos, trop 0.21 -> 0.25, Mag 1.1 UA brown, turbid, proteinuria, trace ketones, positive nitrite, large leukocyte esterase, RBC > 75, WBC >75, many bacteria, large Hb. CT abd/pelvis: hydronephrosis of left kidney due to obstructing 6 x 4 mm stone at ureteropelvic junction, heptomegaly with fatty change, cholelithiasis. Chest x-ray no acute pathology. EKG: sinus tachycardia with right axis deviation, inferior Q-waves, S1Q3T3 with ST-T changes (V2-6) (no old EKG to compare). Assessment and plan #1 Severe sepsis likely of urological origin/left hydronephrosis due to obstructive uropathy with multi organ failure -8% band with wbc 14, plt improving -status post stent placement -Woody placement, monitoring I's and O's -Blood pressure improved with 6 L bolus of normal saline. -Continue IV fluids at 1 50 cc an hour -c/w IV ceftriaxone in the ED. We will continue the same for now -PO Protonix ordered -Blood and urine cultures GNR -LFTs are improving -Urologic consult appreciated #2 LAURIE with metabolic acidosis due to obstructive uropathy(no baseline available ) -Creatinine from this morning 3.7 -Avoid nephrotoxins -we will call Nephrology consult #4 Elevated troponin likely type II IA versus NSTEMI -PE ruled out with V/Q (low probility) -No chest pain at this time. EKG showed inferior Q waves with right heart strain. -troponing trended down (0.27) -Patient started on aspirin,statin, beta blockers held due to hypotension -Echocardiogram EF 65% -Cardiology consult on board #swelling of the left hand -most likely due to fluids -we will get doppler to rule out DVT DVT prophylaxis alps Full code Medium/severe pain pathway Problem List: 1. Elevated troponin 2. LAURIE (acute kidney injury) Pain Ratin Pain Location: woody placement Tomorrow's Labs & Rationales: cbc icu bundle Plan DVT/Prophylaxis: mechanical
--- NOTE | 2017-09-01 09:41 | PN- CRCU ---
Subjective HPI/Critical Care Issues: Status post stent placement Urine output has picked up Since the stent placement she is clinically stable no fever Vital signs otherwise stable Blood work reviewed creatinine still elevated at 3.7. Anion gap is 13 bicarbonate is 14 The troponin continues to be elevated at 0.24 LFTs are elevated which needs to be rechecked White count this morning was 14.4 with platelets which seems to have improved to 09/15/1986 percent segs Hemoglobin 11.8 CT scan of the abdomen reviewed yesterday VQ scan low probability Objective Current Medications: Current Medications Sig/Sarah Start time Last Medication Dose Route Stop Time Status Admin Aspirin 81 MG DAILY 09/01 1000 AC PO Ceftriaxone Sodium 1,000 MG DAILY 08/31 1000 AC 08/31 IV 1528 Fentanyl Citrate 100 MCG .STK-MED ONE 08/31 1047 DC IM 08/31 1048 Midazolam HCl 2 MG .STK-MED ONE 08/31 1048 DC IM 08/31 1049 Morphine Sulfate 2 MG Q6P PRN 08/31 0830 AC IV Multivitamins 1 TAB DAILY 08/31 1000 AC PO Omeprazole 40 MG DAILY AC 09/01 0922 UNVr PO 09/05 0701 Pantoprazole Sodium 40 MG DAILY 08/31 1000 DC 08/31 IV 1528 Potassium Chloride 40 MEQ ONCE ONE 09/01 0930 UNVr PO 09/01 0931 Sodium Chloride 1,000 ML Q13H 08/31 1615 AC 09/01 IV 0455 Sodium Chloride 1,000 ML Q6H 08/31 0515 DC 08/31 IV 08/31 1114 0530 Vital Signs & I&O Last 24 Hrs of Vitals and I&O: Laboratory Tests 09/01 08/31 0448 0655 Chemistry Sodium (137 - 145 mmol/L) 138 Potassium (3.5 - 5.1 mmol/L) 3.6 Chloride (98 - 107 mmol/L) 112 H Carbon Dioxide (22 - 30 mmol/L) 14 L Anion Gap (5 - 16) 13 BUN (7 - 17 mg/dL) 45 H Creatinine (0.5 - 1.0 mg/dL) 3.7 H Estimated GFR (>60 ml/min) 12 L Glucose (65 - 99 mg/dL) 65 Lactic Acid (0.7 - 2.1 mmol/L) 1.9 Calcium (8.4 - 10.2 mg/dL) 7.0 L Phosphorus (2.5 - 4.5 mg/dL) 2.7 Magnesium (1.6 - 2.3 mg/dL) 1.9 Total Bilirubin (0.2 - 1.3 mg/dL) 0.2 AST (14 - 36 U/L) 61 H ALT (9 - 52 U/L) 120 H Albumin (3.5 - 5.0 g/dL) 2.1 L Hematology CBC w Diff MAN DIFF ORDERED WBC (4.8 - 10.8 /CUMM) 14.4 H RBC (4.20 - 5.40 /CUMM) 3.79 L Hgb (12.0 - 16.0 G/DL) 11.8 L Hct (37 - 47 %) 34.9 L MCV (81.0 - 99.0 FL) 92.1 MCH (27.0 - 31.0 PG) 31.0 RDW (11.5 - 14.5 %) 13.3 Plt Count (130 - 400 /CUMM) 113 L MPV (7.4 - 10.4 FL) 8.8 Gran % (42.2 - 75.2 %) 87.2 H Lymphocytes % (20.5 - 51.1 %) 6.8 L Monocytes % (1.7 - 9.3 %) 5.7 Eosinophils % (0 - 5 %) 0.2 Basophils % (0.0 - 2.0 %) 0.1 Absolute Granulocytes (1.4 - 6.5 /CUMM) 12.6 H Segmented Neutrophils (42.2 - 75.2 %) 84 H Band Neutrophils (0.0 - 5.0 %) 8 H Absolute Lymphocytes (1.2 - 3.4 /CUMM) 1.0 L Lymphocytes (20.5 - 51.1 %) 4 L Monocytes (1.7 - 9.3 %) 4 Absolute Monocytes (0.10 - 0.60 /CUMM) 0.8 H Absolute Eosinophils (0.0 - 0.7 /CUMM) 0 Absolute Basophils (0.0 - 0.2 /CUMM) 0 Platelet Estimate (ADEQUATE) DECREASED Normocytic RBCs VERIFIED Normochromic RBCs VERIFIED PUBS MCHC (33.0 - 37.0 G/DL) 33.7 08/31 08/31 08/31 0655 0337 0250 Chemistry Sodium (137 - 145 mmol/L) 137 Potassium (3.5 - 5.1 mmol/L) 4.1 Chloride (98 - 107 mmol/L) 110 H Carbon Dioxide (22 - 30 mmol/L) 16 L Anion Gap (5 - 16) 11 BUN (7 - 17 mg/dL) 41 H Creatinine (0.5 - 1.0 mg/dL) 3.7 H Estimated GFR (>60 ml/min) 12 L Glucose (65 - 99 mg/dL) 114 H Lactic Acid Cancelled Calcium (8.4 - 10.2 mg/dL) 6.2 L Phosphorus (2.5 - 4.5 mg/dL) 2.4 L Magnesium (1.6 - 2.3 mg/dL) 1.4 L Total Bilirubin (0.2 - 1.3 mg/dL) 0.4 AST (14 - 36 U/L) 203 H ALT (9 - 52 U/L) 184 H Troponin I (< 0.11 ng/ml) 0.24 *H Albumin (3.5 - 5.0 g/dL) 2.0 L Triglycerides (<150 mg/dL) 187 H Cholesterol (<200 MG/DL) 97 LDL Cholesterol, Calc (65 - 129 mg/dL) 44 L HDL Cholesterol (40 - 60 mg/dL) 16 L Cholesterol/HDL Ratio (0.00 - 4.23 %) 6 H Coagulation APTT (25 - 37 SEC) 62 H Hematology CBC w Diff MAN DIFF ORDERED WBC (4.8 - 10.8 /CUMM) 14.6 H RBC (4.20 - 5.40 /CUMM) 3.52 L Hgb (12.0 - 16.0 G/DL) 11.1 L Hct (37 - 47 %) 32.5 L MCV (81.0 - 99.0 FL) 92.3 MCH (27.0 - 31.0 PG) 31.5 H RDW (11.5 - 14.5 %) 13.2 Plt Count (130 - 400 /CUMM) 78 L MPV (7.4 - 10.4 FL) 9.0 Gran % (42.2 - 75.2 %) 91.6 H Lymphocytes % (20.5 - 51.1 %) 5.8 L Monocytes % (1.7 - 9.3 %) 2.4 Eosinophils % (0 - 5 %) 0.2 Basophils % (0.0 - 2.0 %) 0 Absolute Granulocytes (1.4 - 6.5 /CUMM) 13.4 H Segmented Neutrophils (42.2 - 75.2 %) 58 Band Neutrophils (0.0 - 5.0 %) 19 H Absolute Lymphocytes (1.2 - 3.4 /CUMM) 0.9 L Lymphocytes (20.5 - 51.1 %) 11 L Monocytes (1.7 - 9.3 %) 12 H Absolute Monocytes (0.10 - 0.60 /CUMM) 0.3 Absolute Eosinophils (0.0 - 0.7 /CUMM) 0 Absolute Basophils (0.0 - 0.2 /CUMM) 0 Platelet Estimate (ADEQUATE) DECREASED Normocytic RBCs VERIFIED Normochromic RBCs VERIFIED PUBS MCHC (33.0 - 37.0 G/DL) 34.2 Urines Urine Osmolality (300 - 1000 MOSM/KG) 282 L Ur Random Creatinine (mg/dL) 210.5 Ur Random Sodium (30 - 90 mmol/L) 76 Ur Random Potassium (mmol/L) 32.2 Fraction Sodium Excret (<1% %) 1.1 H 08/31 08/31 08/30 0208 0046 2345 Chemistry BUN (7 - 17 mg/dL) 45 H Creatinine (0.5 - 1.0 mg/dL) 3.9 H Estimated GFR (>60 ml/min) 12 L BUN/Creatinine Ratio (7 - 25 %) 11.5 Lactic Acid (0.7 - 2.1 mmol/L) 1.6 Magnesium (1.6 - 2.3 mg/dL) 1.1 L Lactate Dehydrogenase (313 - 618 U/L) 461 Creatine Kinase (30 - 135 U/L) 46 Troponin I (< 0.11 ng/ml) 0.25 *H TSH (0.270 - 4.200 uIU/mL) 0.713 Free T4 (0.78 - 2.44 ng/dL) 1.48 Urines Urinalysis HEAVY H Urine Color (YEL,AMB,STR) BROWN H Urine Clarity (CLEAR) TURBD H Urine pH (5.0 - 8.0) 6.5 Ur Specific [place] (1.001 - 1.035) 1.025 Urine Protein (NEG,<30 MG/DL) >=300 H Urine Ketones (NEG) TRACE H Urine Nitrite (NEG) POS H Urine Bilirubin (NEG) NEG@ICTO Urine Urobilinogen (0.1 - 1.0 EU/dl) 1.0 Ur Leukocyte Esterase (NEG) LARGE H Ur Microscopic SEDIMENT EXAMINED Urine RBC (0 - 5 /HPF) >75 H Urine WBC (0 - 2 /HPF) > 75 H Ur Epithelial Cells (NONE,FEW) FEW Urine Bacteria (NEG/NONE) MANY H Urine Hemoglobin (NEG) LARGE H Urine Glucose (N MG/DL) NEG 08/30 Chemistry Sodium (137 - 145 mmol/L) 135 L Potassium (3.5 - 5.1 mmol/L) 3.0 L Chloride (98 - 107 mmol/L) 98 Carbon Dioxide (22 - 30 mmol/L) 21 L Anion Gap (5 - 16) 16 BUN (7 - 17 mg/dL) 51 H Creatinine (0.5 - 1.0 mg/dL) 4.0 H Estimated GFR (>60 ml/min) 11 L BUN/Creatinine Ratio (7 - 25 %) 12.8 Glucose (65 - 99 mg/dL) 106 H Calcium (8.4 - 10.2 mg/dL) 8.7 Total Bilirubin (0.2 - 1.3 mg/dL) 0.6 AST (14 - 36 U/L) 31 ALT (9 - 52 U/L) 39 Alkaline Phosphatase (<127 U/L) 196 H Troponin I (< 0.11 ng/ml) 0.21 *H Total Protein (6.3 - 8.2 g/dL) 5.9 L Albumin (3.5 - 5.0 g/dL) 3.0 L Globulin (1.9 - 4.2 gm/dL) 2.9 Albumin/Globulin Ratio (1.1 - 2.2 %) 1.0 L Coagulation PT (9.4 - 12.5 SEC) Cancelled 13.6 H INR (0.90 - 1.19) Cancelled 1.30 H APTT (25 - 37 SEC) Cancelled 26 D-Dimer High Sensitivty (0 - 243 ng/ml) 9356 H Hematology CBC w Diff MAN DIFF ORDERED WBC (4.8 - 10.8 /CUMM) 8.7 RBC (4.20 - 5.40 /CUMM) 4.33 Hgb (12.0 - 16.0 G/DL) 13.5 Hct (37 - 47 %) 39.9 MCV (81.0 - 99.0 FL) 92.1 MCH (27.0 - 31.0 PG) 31.1 H RDW (11.5 - 14.5 %) 12.8 Plt Count (130 - 400 /CUMM) 123 L MPV (7.4 - 10.4 FL) 7.6 Gran % (42.2 - 75.2 %) 97.0 H Lymphocytes % (20.5 - 51.1 %) 2.6 L Monocytes % (1.7 - 9.3 %) 0.3 L Eosinophils % (0 - 5 %) 0.1 Basophils % (0.0 - 2.0 %) 0 Absolute Granulocytes (1.4 - 6.5 /CUMM) 8.4 H Segmented Neutrophils (42.2 - 75.2 %) 86 H Band Neutrophils (0.0 - 5.0 %) 9 H Absolute Lymphocytes (1.2 - 3.4 /CUMM) 0.2 L Lymphocytes (20.5 - 51.1 %) 2 L Monocytes (1.7 - 9.3 %) 3 Absolute Monocytes (0.10 - 0.60 /CUMM) 0 L Absolute Eosinophils (0.0 - 0.7 /CUMM) 0 Absolute Basophils (0.0 - 0.2 /CUMM) 0 Platelet Estimate (ADEQUATE) DECREASED Normocytic RBCs VERIFIED Normochromic RBCs VERIFIED PUBS MCHC (33.0 - 37.0 G/DL) 33.8 Microbiology Date/Time Procedure - Status Source Growth 08/31 0800 Clostridium difficile Toxin A & B - COMP STOOL 08/31 0130 Blood Culture - RECD BLOOD 08/31 0046 Blood Culture - RES BLOOD GRAM NEGATIVE RODS 08/31 0045 Surveillance Culture - COMP UPPER RESP 08/31 004 Surveillance Culture - COMP GI 08/30 2345 Urine Culture - RES URINE ROUT GRAM NEGATIVE RODS 08/30 2045 Influenza Virus A & B Rapid Smear - COMP NASOPHARYN Vital Signs Date Time Temp Pulse Resp B/P B/P Pulse O2 O2 Flow FiO2 Mean Ox Delivery Rate 09/01 0400 91 Room Air Room Air 09/01 0000 94 Room Air Room Air 08/31 2300 98.3 88 20 102/60 94 Room Air Room Air 08/31 2000 95 Room Air Room Air 08/31 1600 97.5 80 20 114/68 98 Room Air 08/31 1330 96 Nasal 2.0L Cannula Intake & Output 09/01 1600 09/01 0800 09/01 0000 Intake Total 975 937 Output Total 950 775 Balance 25 162 Intake, IV 575 487 Intake, Oral 400 450 Number 0 2 Bowel Movements Output, Urine 950 775 Impression/Plan Impression/Plan Impression/Plan: General Appearance: well developed/nourished, alert, awake, mild distress Head: atraumatic, normal appearance Eyes: Bilateral: normal appearance. Ears, Nose, Throat: normal pharynx Neck: normal inspection, supple, full range of motion Respiratory: normal breath sounds, chest non-tender Cardiovascular: regular rate/rhythm Gastrointestinal: tenderness, cva tenderness, mild pain in the pelvic region Back: normal inspection Extremities: normal inspection, normal capillary refill 62 yo F with h/o nephrolithiasis and hepatic steatosis, presented to the ED for evaluation of left flank pain, malaise and fatigue for few days prior to admission. ISSUES * Resolving Severe sepsis (urological origint, gram neg) due to hydronephosis from obstructive uropathy due to a large ureter stone on the left side with s/p stent placement * LAURIE with prob ckd with creatinine still elevated * Resolving Multiple organ dysfunction due to sepsis * Sig hepatomegaly with fatty liver with altered lfts aswell * Type 2 mi probably and to rule out ACS with sinus tachy with RV strain pattern in the ekg, with low prob VQ scan * LAURIE with sig acidosis due to obstructive uropathy and sepsis * Swollen left arm due to IVF and bp cuff REC DC IVF Encourage po intake Cont abx for now [place] and monitor creat Lower ext dopplers, and left upper ext dopplers PPI Sub cut heparin for now Await cultures, follow troponin, ekg, and recheck liver enzymes in am IV lasix one dose today 60 mg IF creatinine is elevated still in am will call renal Change bp cuff to rt arm Try to remove the wedding band today Elevate left arm PT is critically ill ttx 36 mins
--- NOTE | 2017-09-01 13:23 | ULTRASOUND REPORT ---
EXAMINATION: US TRIPLEX OF LOWER EXTREMITIES, BILATERAL CLINICAL INFORMATION: Bilateral leg swelling with positive d-dimer COMPARISON: None TECHNIQUE: Color-flow triplex imaging with spectral analysis and compression Doppler were performed on the lower extremities. FINDINGS: Respiratory variation, normal compression and augmented flow are noted throughout the lower extremities. The visualized common femoral vein, superficial femoral vein, profunda femoral vein, popliteal vein and midcalf peroneal and posterior tibial venous segments show no evidence of deep venous thrombosis. There is no Ro's cyst. IMPRESSION: Normal triplex scan without evidence of deep venous thrombosis involving the lower extremities.
--- NOTE | 2017-09-01 13:25 | ULTRASOUND REPORT ---
EXAMINATION: US TRIPLEX LOWER EXTREMITY, LEFT CLINICAL INFORMATION: Left arm edema and swelling. COMPARISON: None. TECHNIQUE: Color-flow triplex imaging with spectral analysis and compression Doppler were performed on the left upper extremity. FINDINGS: The left internal jugular, subclavian, axillary, brachial, basilic and cephalic vein segments show normal flow and compressibility. No deep venous thrombosis is seen.. IMPRESSION: Normal triplex scan without evidence of deep venous thrombosis involving the left upper extremity.
--- NOTE | 2017-09-01 13:45 | Cons- Nephrology ---
General Information and HPI Consulting Request Date of Consult: 09/01/17 Requested By: Elissa GREENBERG,Damien Vora History of Present Illness: 62 yo female with remote history of renal stone, abdominal US in fall which showed left sided non-obstructing stone, fatty liver. She had normal creatinine at that time. She was admitted to the hospital 3 days ago with left flank pain, diarrhea, vomiting x1. She did take a "couple of Aleve's". Although initially normotensive she rapidly became hypotensive and required several liters of fluid. She developed thrombocytopenia, elevated coags. Blood cultures and urine cultures eventually grew GNRs. CT of abdomen without contrast showed left sided hydronephrosis from obstructing stone, janell-nephric stranding. Initial creatinine ws 4.0. She had left uretereal stent placed and althouh urine output has improved substantially, creatinine is still in 3s, so I was asked to see the patient. FH: positive for stones in multiple family members, no ESRD. SH: negative for smoking or ethanol consumption Allergies/Medications Allergies: Coded Allergies: No Known Allergies (08/30/17) Home Med List: Calcium Carb/Vitamin D3/Vit K1 (Calcium + D Soft Chewable Tab) 500 MG CALCIUM-1, 000 UNIT-40 MCG TAB.CHEW 2 TAB PO DAILY SUPPLEMENT (Reported) Multivitamin (Animal Chews) 1 EACH TAB.CHEW 2 TAB PO DAILY SUPPLEMENT ( Reported) Current Medications: Current Medications Sig/Sarah Start time Last Medication Dose Route Stop Time Status Admin Aspirin 81 MG DAILY 09/01 1000 AC 09/01 PO 0939 Ceftriaxone Sodium 1,000 MG DAILY 08/31 1000 AC 09/01 IV 0940 Furosemide 60 MG ONCE ONE 09/01 1045 DC 09/01 IV 09/01 1046 1104 Morphine Sulfate 2 MG Q6P PRN 08/31 0830 AC IV Multivitamins 1 TAB DAILY 08/31 1000 AC 09/01 PO 0939 Omeprazole 40 MG DAILY AC 09/01 0922 AC PO 09/05 0701 Pantoprazole Sodium 40 MG DAILY 08/31 1000 DC 09/01 IV 0920 Potassium Chloride 40 MEQ ONCE ONE 09/01 0930 DC 09/01 PO 09/01 0931 0943 Sodium Chloride 1,000 ML Q13H 08/31 1615 DC 09/01 IV 0455 Review of Systems Review of Systems: Negative except as noted above. Past History Travel History Traveled to [place] past 21 day No Medical History Blood Transfusion Hx: No Neurological: NONE EENT: NONE Cardiovascular: NONE Respiratory: NONE Gastrointestinal: NONE Hepatic: NONE Renal: KIDNEY STONE Musculoskeletal: NONE Psychiatric: NONE Endocrine: NONE Blood Disorders: NONE Cancer(s): NONE FREIGHT ADJUSTER/Reproductive: NONE Surgical History Surgical History: non-contributory Psychosocial History Where Do You Live? Home Services at Home: None Smoking Status: Never Smoked ETOH Use: denies use Functional Ability ADLs Independent: dressing, eating, toileting, bathing. Ambulation: independent IADLs Independent: shopping, housework, finances, food prep, telephone, transportation , medication admin. Employment History Employment: Employed Exam & Diagnostic Data Vital Signs and I&O Vital Signs Date Time Temp Pulse Resp B/P B/P Pulse O2 O2 Flow FiO2 Mean Ox Delivery Rate 09/01 0800 98.3 84 20 104/56 92 Room Air 09/01 0400 91 Room Air Room Air 09/01 0000 94 Room Air Room Air 08/31 2300 98.3 88 20 102/60 94 Room Air Room Air 08/31 2000 95 Room Air Room Air 08/31 1600 97.5 80 20 114/68 98 Room Air Intake & Output 09/01 1600 09/01 0400 08/31 1600 08/31 0400 08/30 1600 08/30 0400 Intake Total 502 656 7427 4000 Output Total 950 775 480 12 Balance 25 162 3250 3988 Intake, IV 763 061 6753 4000 Intake, Oral 400 450 150 Number 0 2 4 Bowel Movements Output, Urine 950 775 480 12 Patient 132 lb 132 lb Weight Weight Bed scale Reported by Patient Measurement Method Physical Exam: NAD VS as above Eyes: anicteric PERRLA Neck: no mass or thryromegaly Nodes: negative cervical/inguinal Skin: no rash or induration CV: no rub or murmur Abd: nontender, no organomegaly, BS positive Exts: no edema, 1+ DP pulse Neuro : A&O, CN intact, no asterixis. Results Pertinent Lab Results: Laboratory Tests 09/01 09/01 08/31 1200 0448 0655 Chemistry Sodium (137 - 145 mmol/L) 138 Potassium (3.5 - 5.1 mmol/L) 3.6 Chloride (98 - 107 mmol/L) 112 H Carbon Dioxide (22 - 30 mmol/L) 14 L Anion Gap (5 - 16) 13 BUN (7 - 17 mg/dL) 45 H Creatinine (0.5 - 1.0 mg/dL) 3.7 H Estimated GFR (>60 ml/min) 12 L Glucose (65 - 99 mg/dL) 65 Lactic Acid (0.7 - 2.1 mmol/L) 1.9 Calcium (8.4 - 10.2 mg/dL) 7.0 L Phosphorus (2.5 - 4.5 mg/dL) 2.7 Magnesium (1.6 - 2.3 mg/dL) 1.9 Total Bilirubin (0.2 - 1.3 mg/dL) 0.2 AST (14 - 36 U/L) 61 H ALT (9 - 52 U/L) 120 H Troponin I (< 0.11 ng/ml) 0.27 *H 0.44 *H Albumin (3.5 - 5.0 g/dL) 2.1 L Hematology CBC w Diff MAN DIFF ORDERED WBC (4.8 - 10.8 /CUMM) 14.4 H RBC (4.20 - 5.40 /CUMM) 3.79 L Hgb (12.0 - 16.0 G/DL) 11.8 L Hct (37 - 47 %) 34.9 L MCV (81.0 - 99.0 FL) 92.1 MCH (27.0 - 31.0 PG) 31.0 RDW (11.5 - 14.5 %) 13.3 Plt Count (130 - 400 /CUMM) 113 L MPV (7.4 - 10.4 FL) 8.8 Gran % (42.2 - 75.2 %) 87.2 H Lymphocytes % (20.5 - 51.1 %) 6.8 L Monocytes % (1.7 - 9.3 %) 5.7 Eosinophils % (0 - 5 %) 0.2 Basophils % (0.0 - 2.0 %) 0.1 Absolute Granulocytes (1.4 - 6.5 /CUMM) 12.6 H Segmented Neutrophils (42.2 - 75.2 %) 84 H Band Neutrophils (0.0 - 5.0 %) 8 H Absolute Lymphocytes (1.2 - 3.4 /CUMM) 1.0 L Lymphocytes (20.5 - 51.1 %) 4 L Monocytes (1.7 - 9.3 %) 4 Absolute Monocytes (0.10 - 0.60 /CUMM) 0.8 H Absolute Eosinophils (0.0 - 0.7 /CUMM) 0 Absolute Basophils (0.0 - 0.2 /CUMM) 0 Platelet Estimate (ADEQUATE) DECREASED Normocytic RBCs VERIFIED Normochromic RBCs VERIFIED PUBS MCHC (33.0 - 37.0 G/DL) 33.7 08/31 08/31 08/31 0655 0330 0250 Chemistry Sodium (137 - 145 mmol/L) 137 Potassium (3.5 - 5.1 mmol/L) 4.1 Chloride (98 - 107 mmol/L) 110 H Carbon Dioxide (22 - 30 mmol/L) 16 L Anion Gap (5 - 16) 11 BUN (7 - 17 mg/dL) 41 H Creatinine (0.5 - 1.0 mg/dL) 3.7 H Estimated GFR (>60 ml/min) 12 L Glucose (65 - 99 mg/dL) 114 H Lactic Acid Cancelled Calcium (8.4 - 10.2 mg/dL) 6.2 L Phosphorus (2.5 - 4.5 mg/dL) 2.4 L Magnesium (1.6 - 2.3 mg/dL) 1.4 L Total Bilirubin (0.2 - 1.3 mg/dL) 0.4 AST (14 - 36 U/L) 203 H ALT (9 - 52 U/L) 184 H Troponin I (< 0.11 ng/ml) 0.24 *H Albumin (3.5 - 5.0 g/dL) 2.0 L Triglycerides (<150 mg/dL) 187 H Cholesterol (<200 MG/DL) 97 LDL Cholesterol, Calc (65 - 129 mg/dL) 44 L HDL Cholesterol (40 - 60 mg/dL) 16 L Cholesterol/HDL Ratio (0.00 - 4.23 %) 6 H Coagulation APTT (25 - 37 SEC) 62 H Hematology CBC w Diff MAN DIFF ORDERED WBC (4.8 - 10.8 /CUMM) 14.6 H RBC (4.20 - 5.40 /CUMM) 3.52 L Hgb (12.0 - 16.0 G/DL) 11.1 L Hct (37 - 47 %) 32.5 L MCV (81.0 - 99.0 FL) 92.3 MCH (27.0 - 31.0 PG) 31.5 H RDW (11.5 - 14.5 %) 13.2 Plt Count (130 - 400 /CUMM) 78 L MPV (7.4 - 10.4 FL) 9.0 Gran % (42.2 - 75.2 %) 91.6 H Lymphocytes % (20.5 - 51.1 %) 5.8 L Monocytes % (1.7 - 9.3 %) 2.4 Eosinophils % (0 - 5 %) 0.2 Basophils % (0.0 - 2.0 %) 0 Absolute Granulocytes (1.4 - 6.5 /CUMM) 13.4 H Segmented Neutrophils (42.2 - 75.2 %) 58 Band Neutrophils (0.0 - 5.0 %) 19 H Absolute Lymphocytes (1.2 - 3.4 /CUMM) 0.9 L Lymphocytes (20.5 - 51.1 %) 11 L Monocytes (1.7 - 9.3 %) 12 H Absolute Monocytes (0.10 - 0.60 /CUMM) 0.3 Absolute Eosinophils (0.0 - 0.7 /CUMM) 0 Absolute Basophils (0.0 - 0.2 /CUMM) 0 Platelet Estimate (ADEQUATE) DECREASED Normocytic RBCs VERIFIED Normochromic RBCs VERIFIED PUBS MCHC (33.0 - 37.0 G/DL) 34.2 Urines Urine Osmolality (300 - 1000 MOSM/KG) 282 L Ur Random Creatinine (mg/dL) 210.5 Ur Random Sodium (30 - 90 mmol/L) 76 Ur Random Potassium (mmol/L) 32.2 Fraction Sodium Excret (<1% %) 1.1 H 08/31 08/31 08/30 0208 0046 2345 Chemistry BUN (7 - 17 mg/dL) 45 H Creatinine (0.5 - 1.0 mg/dL) 3.9 H Estimated GFR (>60 ml/min) 12 L BUN/Creatinine Ratio (7 - 25 %) 11.5 Lactic Acid (0.7 - 2.1 mmol/L) 1.6 Magnesium (1.6 - 2.3 mg/dL) 1.1 L Lactate Dehydrogenase (313 - 618 U/L) 461 Creatine Kinase (30 - 135 U/L) 46 Troponin I (< 0.11 ng/ml) 0.25 *H TSH (0.270 - 4.200 uIU/mL) 0.713 Free T4 (0.78 - 2.44 ng/dL) 1.48 Urines Urinalysis HEAVY H Urine Color (YEL,AMB,STR) BROWN H Urine Clarity (CLEAR) TURBD H Urine pH (5.0 - 8.0) 6.5 Ur Specific [place] (1.001 - 1.035) 1.025 Urine Protein (NEG,<30 MG/DL) >=300 H Urine Ketones (NEG) TRACE H Urine Nitrite (NEG) POS H Urine Bilirubin (NEG) NEG@ICTO Urine Urobilinogen (0.1 - 1.0 EU/dl) 1.0 Ur Leukocyte Esterase (NEG) LARGE H Ur Microscopic SEDIMENT EXAMINED Urine RBC (0 - 5 /HPF) >75 H Urine WBC (0 - 2 /HPF) > 75 H Ur Epithelial Cells (NONE,FEW) FEW Urine Bacteria (NEG/NONE) MANY H Urine Hemoglobin (NEG) LARGE H Urine Glucose (N MG/DL) NEG 08/30 08/30 2250 5 Chemistry Sodium (137 - 145 mmol/L) 135 L Potassium (3.5 - 5.1 mmol/L) 3.0 L Chloride (98 - 107 mmol/L) 98 Carbon Dioxide (22 - 30 mmol/L) 21 L Anion Gap (5 - 16) 16 BUN (7 - 17 mg/dL) 51 H Creatinine (0.5 - 1.0 mg/dL) 4.0 H Estimated GFR (>60 ml/min) 11 L BUN/Creatinine Ratio (7 - 25 %) 12.8 Glucose (65 - 99 mg/dL) 106 H Calcium (8.4 - 10.2 mg/dL) 8.7 Total Bilirubin (0.2 - 1.3 mg/dL) 0.6 AST (14 - 36 U/L) 31 ALT (9 - 52 U/L) 39 Alkaline Phosphatase (<127 U/L) 196 H Troponin I (< 0.11 ng/ml) 0.21 *H Total Protein (6.3 - 8.2 g/dL) 5.9 L Albumin (3.5 - 5.0 g/dL) 3.0 L Globulin (1.9 - 4.2 gm/dL) 2.9 Albumin/Globulin Ratio (1.1 - 2.2 %) 1.0 L Coagulation PT (9.4 - 12.5 SEC) Cancelled 13.6 H INR (0.90 - 1.19) Cancelled 1.30 H APTT (25 - 37 SEC) Cancelled 26 D-Dimer High Sensitivty (0 - 243 ng/ml) 9356 H Hematology CBC w Diff MAN DIFF ORDERED WBC (4.8 - 10.8 /CUMM) 8.7 RBC (4.20 - 5.40 /CUMM) 4.33 Hgb (12.0 - 16.0 G/DL) 13.5 Hct (37 - 47 %) 39.9 MCV (81.0 - 99.0 FL) 92.1 MCH (27.0 - 31.0 PG) 31.1 H RDW (11.5 - 14.5 %) 12.8 Plt Count (130 - 400 /CUMM) 123 L MPV (7.4 - 10.4 FL) 7.6 Gran % (42.2 - 75.2 %) 97.0 H Lymphocytes % (20.5 - 51.1 %) 2.6 L Monocytes % (1.7 - 9.3 %) 0.3 L Eosinophils % (0 - 5 %) 0.1 Basophils % (0.0 - 2.0 %) 0 Absolute Granulocytes (1.4 - 6.5 /CUMM) 8.4 H Segmented Neutrophils (42.2 - 75.2 %) 86 H Band Neutrophils (0.0 - 5.0 %) 9 H Absolute Lymphocytes (1.2 - 3.4 /CUMM) 0.2 L Lymphocytes (20.5 - 51.1 %) 2 L Monocytes (1.7 - 9.3 %) 3 Absolute Monocytes (0.10 - 0.60 /CUMM) 0 L Absolute Eosinophils (0.0 - 0.7 /CUMM) 0 Absolute Basophils (0.0 - 0.2 /CUMM) 0 Platelet Estimate (ADEQUATE) DECREASED Normocytic RBCs VERIFIED Normochromic RBCs VERIFIED PUBS MCHC (33.0 - 37.0 G/DL) 33.8 Assessment/Plan Assessment/Recommendations Assessment: LAURIE from sepsis. Patient hemodynamically stable at this point with good UO. Source of sepsis, which was left ureteral obstruction and pyelonephritis, have been addressed. Although intial UA had 300 mg% protein this was from grossly infected specimen and during time of overwhelming sepsis. Recommendations: At this point just continue supportive care with antibiotics/fluids. Would expect slow improvement in function. Does not need more investigation for other causes of renal insufficiency unless renal function does not recover. Eventually will need urologic procedure for stone removal but this can wait until renal function recovers. Thank kierra for this consult.
[2017-09-01 16:00] VITALS: BP 104/62
[2017-09-01 17:07] VITALS: BP 108/54
[2017-09-01 23:00] VITALS: BP 127/62
[2017-09-02 06:52] LABS: ABSOLUTE BASOPHIL COUNT 0.1 /CUMM (0.0-0.2); ABSOLUTE EOSINOPHIL COUNT 0.1 /CUMM (0.0-0.7); ABSOLUTE GRANULOCYTE CT 8.2 /CUMM (1.4-6.5); ABSOLUTE LYMPH COUNT 1.4 /CUMM (1.2-3.4); ABSOLUTE MONOCYTE COUNT 1.1 /CUMM (0.10-0.60); BASOPHIL % 0.5 % (0.0-2.0); EOSINOPHIL % 1.2 % (0-5); GRANULOCYTE % 75.5 % (42.2-75.2); HEMATOCRIT 34.2 % (37-47); MEAN CORPUSCULAR HGB 31.3 PG (27.0-31.0); MEAN CORPUSCULAR HGB CONC 34.2 G/DL (33.0-37.0); MEAN CORPUSCULAR VOLUME 91.5 FL (81.0-99.0); MEAN PLATELET VOLUME 8.6 FL (7.4-10.4); PLATELET COUNT 142 /CUMM (130-400); RBC DISTRIBUTION WIDTH 13.3 % (11.5-14.5); RED BLOOD CELL CT 3.74 /CUMM (4.20-5.40); WHITE BLOOD CELL COUNT 10.9 /CUMM (4.8-10.8)
[2017-09-02 08:00] VITALS: BP 146/70
--- NOTE | 2017-09-02 08:45 | PN- Resident CRCU ---
Subjective HPI/CRCU Issues: Ms Conley was seen and examined this morning. Resting comfortably in bed. , Aleks as at bedside. Patient denies any issues overnight. She feels remarkably better. She has been able to tolerate PO intake. Woody still in place and draining well. She denies any flank pain. She denies any fever, chills, nausea, vomiting. She denies any chest pain or chest discomfort. 24 Hour Events: No Events Reported Objective Vital Signs & I&O Last 8 Hrs of Vitals and I&O: T: 98.8. HR: 67-94. Rhythm: NSR. RR: 18-30. BP:100/54-131/53. RA. Intake: 1530 mL. Output: 5250 Exam General Appearance: well developed/nourished, no apparent distress, alert Respiratory: normal breath sounds Cardiovascular: regular rate/rhythm Gastrointestinal: normal bowel sounds, soft, non-tender Extremities: normal inspection, normal capillary refill, normal range of motion, no edema Cranial Nerves: normal hearing, normal speech, PERRL Current Medications: Current Medications Sig/Sarah Start time Last Medication Dose Route Stop Time Status Admin Aspirin 81 MG DAILY 09/01 1000 AC 09/01 PO 0939 Atorvastatin Calcium 80 MG 1700 09/01 1700 AC 09/01 PO 1659 Ceftriaxone Sodium 1,000 MG DAILY 08/31 1000 AC 09/01 IV 0940 Furosemide 40 MG ONCE ONE 09/02 1115 DC IV 09/02 1116 Heparin Sodium 5,000 UNIT Q8 09/02 1400 AC (Porcine) SC Magnesium Sulfate 1 GM Q2H 09/02 1100 AC Dextrose/Water 100 ML IV 09/02 1459 Morphine Sulfate 2 MG Q6P PRN 08/31 0830 AC IV Multivitamins 1 TAB DAILY 08/31 1000 AC 09/01 PO 0939 Omeprazole 40 MG DAILY AC 09/01 0922 DC 09/02 PO 09/05 0701 0640 Potassium Chloride 10 MEQ Q1H 09/02 1100 AC IV 09/02 1201 Potassium Phosphate 15 mMol ONE ONE 09/02 1100 AC Sodium Chloride 250 ML IV 09/02 1504 Impression/Plan Impression/Problem List Impression: Ms Conley is a pleasant 62 yo F with h/o nephrolithiasis and hepatic steatosis, presented to the ED for evaluation of left flank pain, malaise and 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 She reported generalized malaise, fatigue, low back pain, foul-smelling urine, lightheadedness with nausea and vomiting, nonbloody diarrhea with poor by mouth intake. On admission , Vitals: afebrile, HR 90-110's, BP 135/73 -> 99/52 with fluids, sats 98% RA. Assessment and plan #Severe sepsis likely of urological origin/left hydronephrosis due to obstructive uropathy with multi organ failure -8% band with wbc 14, plt improving -status post stent placement -Woody placement, monitoring I's and O's -Blood pressure improved with 6 L bolus of normal saline. -c/w IV ceftriaxone in the ED. We will continue the same for now, will likely need IV ABX for the next few days. -Blood and urine cultures GNR -LFTs are improving -Urologic consult appreciated, will defer to Urology regarding how long woody should remain in palce. #LAURIE with metabolic acidosis due to obstructive uropathy(no baseline available) -Creatinine from this morning 3.4 -Avoid nephrotoxins -Lasix 40 mg IV. Once, will monitor electrolytes. -Nephrology on board. #Elevated troponin likely type II NC versus NSTEMI -PE ruled out with V/Q (low probility) -No chest pain at this time. EKG showed inferior Q waves with right heart strain. -troponin trended down (0.14) -Patient started on aspirin,statin, beta blockers held due to hypotension -Echocardiogram EF 65% #swelling of the left hand -most likely due to fluids -A doppler was done 09/01 which showed no DVT. Continue hand elevation. DVT prophylaxis Heprain Sub Q Full code Problem List: 1. LAURIE (acute kidney injury) 2. Elevated troponin Pain Ratin Tomorrow's Labs & Rationales: CBC: Monitor H/H in the setting of acute illness ICu Bundle: Monitor Electrolytes Plan DVT/Prophylaxis: mechanical
--- NOTE | 2017-09-02 10:31 | PN- CRCU ---
Subjective HPI/Critical Care Issues: Sleeping early this morning Continues to be stable Afebrile Blood pressure is adequate On room air saturating well Patient has had good diuresis yesterday Taking adequate by mouth Creatinine is down to 3.4 BUN is improved anion gap is stable troponin is relatively stable white count down to 10.9 hemoglobin 11.7 Blood culture is growing Escherichia coli which is pansensitive. All the medications reviewed Objective Current Medications: Current Medications Sig/Sarah Start time Last Medication Dose Route Stop Time Status Admin Aspirin 81 MG DAILY 09/01 1000 AC 09/01 PO 0939 Atorvastatin Calcium 80 MG 1700 09/01 1700 AC 09/01 PO 1659 Ceftriaxone Sodium 1,000 MG DAILY 08/31 1000 AC 09/01 IV 0940 Furosemide 60 MG ONCE ONE 09/01 1045 DC 09/01 IV 09/01 1046 1104 Morphine Sulfate 2 MG Q6P PRN 08/31 0830 AC IV Multivitamins 1 TAB DAILY 08/31 1000 AC 09/01 PO 0939 Omeprazole 40 MG DAILY AC 09/01 0922 AC 09/02 PO 09/05 0701 0640 Sodium Chloride 1,000 ML Q13H 08/31 1615 DC 09/01 IV 0455 Vital Signs & I&O Last 24 Hrs of Vitals and I&O: Vital Signs Date Time Temp Pulse Resp B/P B/P Pulse O2 O2 Flow FiO2 Mean Ox Delivery Rate 09/01 2300 98.7 82 20 127/62 92 Room Air 09/01 2000 95 Room Air Room Air 09/01 1707 97.0 87 18 108/54 96 Room Air 09/01 1600 Room Air 09/01 1600 79 20 104/62 95 Room Air Intake & Output 09/02 1600 09/02 0800 09/02 0000 Intake Total 420 480 Output Total 1250 2250 Balance -830 -1770 Intake, IV 20 Intake, Oral 400 480 Number 0 Bowel Movements Output, Urine 1250 2250 Impression/Plan Impression/Plan Impression/Plan: General Appearance: well developed/nourished, alert, awake, mild distress Head: atraumatic, normal appearance Eyes: Bilateral: normal appearance. Ears, Nose, Throat: normal pharynx Neck: normal inspection, supple, full range of motion Respiratory: normal breath sounds, chest non-tender Cardiovascular: regular rate/rhythm Gastrointestinal: tenderness, cva tenderness, mild pain in the pelvic region Back: normal inspection Extremities: normal inspection, normal capillary refill 62 yo F with h/o nephrolithiasis and hepatic steatosis, presented to the ED for evaluation of left flank pain, malaise and fatigue for few days prior to admission. ISSUES * Resolving Severe sepsis (urological origin, pansensitive Escherichia coli) due to hydronephosis from obstructive uropathy due to a large ureter stone on the left side with s/p stent placement * Significant pyelonephritis of the left kidney * LAURIE with prob ckd with creatinine still elevated, slowly resolving * Resolving Multiple organ dysfunction due to sepsis * Sig hepatomegaly with fatty liver with altered lfts aswell * Type 2 mi probably and to rule out ACS with sinus tachy with RV strain pattern in the ekg, with low prob VQ scan * Resolving LAURIE with sig acidosis due to obstructive uropathy and sepsis * Swollen left arm due to IVF and bp cuff/ negative for venous thromboembolism REC Encourage po intake Cont abx for now, intravenously due to pyelonephritis she would need to continue intravenous antibiotics for a few more days Valdez and monitor creat, patient's Valdez can be removed after today please ask urology Can stop proton pump inhibitor Sub cut heparin for now Follow troponin and EKG IV lasix one dose today 40 mg today, keep his potassium more than 4 Try to remove the wedding band today PT is critically ill ttx 36 mins Patient can be transferred to telemetry floor soon
[2017-09-02 16:00] VITALS: BP 126/80
[2017-09-03 07:13] VITALS: BP 130/72
[2017-09-03 08:16] LABS: ABSOLUTE BASOPHIL COUNT 0 /CUMM (0.0-0.2); ABSOLUTE EOSINOPHIL COUNT 0.3 /CUMM (0.0-0.7); ABSOLUTE GRANULOCYTE CT 5.4 /CUMM (1.4-6.5); ABSOLUTE LYMPH COUNT 1.8 /CUMM (1.2-3.4); ABSOLUTE MONOCYTE COUNT 1.3 /CUMM (0.10-0.60); BASOPHIL % 0.4 % (0.0-2.0); EOSINOPHIL % 3.4 % (0-5); GRANULOCYTE % 60.8 % (42.2-75.2); MEAN CORPUSCULAR HGB 31.2 PG (27.0-31.0); MEAN CORPUSCULAR HGB CONC 34.5 G/DL (33.0-37.0); MEAN CORPUSCULAR VOLUME 90.6 FL (81.0-99.0); MEAN PLATELET VOLUME 8.1 FL (7.4-10.4); PLATELET COUNT 172 /CUMM (130-400); RBC DISTRIBUTION WIDTH 13.4 % (11.5-14.5); RED BLOOD CELL CT 3.87 /CUMM (4.20-5.40); WHITE BLOOD CELL COUNT 8.8 /CUMM (4.8-10.8)
--- NOTE | 2017-09-03 08:48 | PN- Housestaff ---
Lisa Lipscomb 09/03/17 0847: Subjective Follow-up For: Sepsis of urologic origin 2/2 obtructive stones [place] type II Complaints: no complaints Subjective: improved no tele event positive fluid balance d/c woody Review of Systems Constitutional: Reports: no symptoms. Cardiovascular: Reports: no symptoms. Gastrointestinal: Reports: no symptoms. Genitourinary: Reports: no symptoms. Musculoskeletal: Reports: no symptoms. Objective Last 24 Hrs of Vital Signs/I&O Vital Signs Date Time Temp Pulse Resp B/P B/P Pulse O2 O2 Flow FiO2 Mean Ox Delivery Rate 09/03 1517 98.0 79 20 142/80 95 09/03 0713 99.6 57 20 130/72 94 09/02 2000 Room Air Room Air Intake & Output 09/03 1600 09/03 0800 09/03 0000 Intake Total 600 250 Output Total 750 1700 1350 Balance -150 -1700 -1100 Intake, IV 250 Intake, Oral 600 Output, Urine 750 1700 1350 Physical Exam General Appearance: Alert, Oriented X3, Cooperative HEENT: Atraumatic, PERRLA, EOMI Neck: No JVD Cardiovascular: Normal S1, Normal S2, No Murmurs Lungs: Clear to Auscultation, Normal Air Movement Abdomen: Soft, No Tenderness Extremities: No Edema Assessment/Plan Assessment: Patient seen and examined. She was transferred out of the ICU after being managed for sepsis secondary to bacteremia of urologic origin Problems: 1. Sepsis of urologic origin 2. Type II myocardial infarction 3. Acute kidney injury secondary to sepsis and obstructive uropathy Plan: -Continue current course of intravenous antibiotic therapy. If patient continues to remain clinically stable she may be transitioned to oral antibiotic therapy to complete 14 days of treatment. She should have blood cultures repeated as an outpatient to document clearance of bacteremia. -Renal function has improved although still abnormal. Recommend consultation with the urology service regarding intervention for her obstructive uropathy. -Discontinue Woody catheter -Mobilize patient. -Cardiology follow-up appreciated. Discontinue telemetry monitoring. Follow-up with the cardiology service regarding any need for further cardiac workup such as stress test. Elvia GREENBERG,Ramin 09/03/17 1606: Attending MD Review Statement Attending Statement Attending MD Statement: examined this patient, discuss w/resident/PA/COMPUTER VIDEO GAME DESIGNER, agreed w/resident/PA/COMPUTER VIDEO GAME DESIGNER, reviewed EMR data (avail), discussed with nursing, amended to note Attending Assessment/Plan: Patient seen and examined. She was transferred out of the ICU after being managed for sepsis secondary to bacteremia of urologic origin. She also managed for type II myocardial infarction. Currently resting comfortably not in any acute distress. Denies chest or shortness of breath. Denies nausea vomiting. Denies abdominal pain. Tolerating diet. Problems: 1. Sepsis of urologic origin 2. Type II myocardial infarction 3. Acute kidney injury secondary to sepsis and obstructive uropathy Plan: -Continue current course of intravenous antibiotic therapy. If patient continues to remain clinically stable she may be transitioned to oral antibiotic therapy to complete 14 days of treatment. She should have blood cultures repeated as an outpatient to document clearance of bacteremia. -Renal function has improved although still abnormal. Recommend consultation with the urology service regarding intervention for her obstructive uropathy. -Discontinue Woody catheter -Mobilize patient. -Cardiology follow-up appreciated. Discontinue telemetry monitoring. Follow-up with the cardiology service regarding any need for further cardiac workup such as stress test.
--- NOTE | 2017-09-03 09:54 | PN- Pulmonary ---
Subjective HPI/Critical Care Issues: Sleeping comfortably early this morning Vital signs reviewed continues to be afebrile on room air Creatinine slowly improving Other blood work reviewed White count down to 8.8 Objective Current Medications: Current Medications Sig/Sarah Start time Last Medication Dose Route Stop Time Status Admin Aspirin 81 MG DAILY 09/01 1000 AC 09/03 PO 0921 Atorvastatin Calcium 80 MG 1700 09/01 1700 AC 09/02 PO 1652 Ceftriaxone Sodium 1,000 MG DAILY 08/31 1000 AC 09/03 IV 0921 Furosemide 40 MG ONCE ONE 09/02 1115 DC 09/02 IV 09/02 1116 1640 Heparin Sodium 5,000 UNIT Q8 09/02 1400 AC 09/02 (Porcine) SC 1640 Magnesium Oxide 400 MG ONE ONE 09/03 0930 DC 09/03 PO 09/03 0931 0921 Magnesium Sulfate 1 GM ONCE ONE 09/03 0915 CAN Dextrose/Water 100 ML IV 09/03 1314 Magnesium Sulfate 1 GM Q2H 09/02 1100 DC 09/02 Dextrose/Water 100 ML IV 09/02 1459 1300 Morphine Sulfate 2 MG Q6P PRN 08/31 0830 AC IV Multivitamins 1 TAB DAILY 08/31 1000 AC 09/03 PO 0921 Omeprazole 40 MG DAILY AC 09/01 0922 DC 09/02 PO 09/05 0701 0640 Potassium Chloride 40 MEQ ONCE ONE 09/03 0915 DC 09/03 PO 09/03 0916 0921 Potassium Chloride 10 MEQ Q1H 09/02 1100 DC IV 09/02 1201 Potassium Phosphate 15 mMol ONE ONE 09/02 1100 DC 09/02 Sodium Chloride 250 ML IV 09/02 1504 1653 Vital Signs & I&O Last 24 Hrs of Vitals and I&O: Vital Signs Date Time Temp Pulse Resp B/P B/P Pulse O2 O2 Flow FiO2 Mean Ox Delivery Rate 09/03 07 99.6 57 20 130/72 94 09/02 2000 Room Air Room Air 09/02 1600 98.6 78 20 126/80 98 Room Air Intake & Output 09/03 1600 09/03 0800 09/03 0000 Intake Total 250 Output Total 1700 1350 Balance -1700 -1100 Intake, IV 250 Output, Urine 1700 1350 Impression/Plan Impression/Plan Impression/Plan: General Appearance: well developed/nourished, alert, awake, mild distress Head: atraumatic, normal appearance Eyes: Bilateral: normal appearance. Ears, Nose, Throat: normal pharynx Neck: normal inspection, supple, full range of motion Respiratory: normal breath sounds, chest non-tender Cardiovascular: regular rate/rhythm Gastrointestinal: tenderness, cva tenderness, mild pain in the pelvic region Back: normal inspection Extremities: normal inspection, normal capillary refill 62 yo F with h/o nephrolithiasis and hepatic steatosis, presented to the ED for evaluation of left flank pain, malaise and fatigue for few days prior to admission. ISSUES * Resolving Severe sepsis (urological origin, pansensitive Escherichia coli) due to hydronephosis from obstructive uropathy due to a large ureter stone on the left side with s/p stent placement * Significant pyelonephritis of the left kidney * Resolving LAURIE with prob ckd with creatinine still elevated, slowly resolving * Resolved Multiple organ dysfunction due to sepsis * Sig hepatomegaly with fatty liver with altered lfts aswell, better * Type 2 mi probably and to rule out ACS with sinus tachy with RV strain pattern in the ekg, with low prob VQ scan * Resolving LAURIE with sig acidosis due to obstructive uropathy and sepsis * Swollen left arm due to IVF and bp cuff/ negative for venous thromboembolism REC Encourage po intake Cont abx for now, intravenously due to pyelonephritis she would need to continue intravenous antibiotics for a few more days, Can then be changed to po ceftin 500 bid to complete the course of abx for two total weeks Follow blood work Sub cut heparin for now Keep potassium more than 4 and give one dose of lasix 40 mg today Once able can go home in a day or two
--- NOTE | 2017-09-03 13:29 | PN- Cardiology ---
Subjective Subjective: Resting comfortably with no chest pain or dyspnea. Objective Vital Signs and I&Os Vital Signs Date Time Temp Pulse Resp B/P B/P Pulse O2 O2 Flow FiO2 Mean Ox Delivery Rate 09/03 712 99.6 57 20 130/72 94 09/02 2000 Room Air Room Air 09/02 1600 98.6 78 20 126/80 98 Room Air Intake & Output 09/03 1600 09/03 0800 09/03 0000 09/02 1600 09/02 0800 09/02 0000 Intake Total 250 800 420 480 Output Total 1700 5096 605 7366 2250 Balance -1700 -1100 270 -830 -1770 Intake, IV 250 200 20 Intake, Oral 600 400 480 Number 1 0 Bowel Movements Output, Urine 1700 4829 321 0200 2250 Physical Exam: General: no apparent distress. Alert. Eyes: No obvious scleral icterus. HEENT: No jugular venous distention or abnormal jugular venous pulsations. Cardiovascular: Normal intensity S1/S2. regular Respiratory: no rales or rhonchi Abdomen: Soft, nontender with no guarding or rebound tenderness. Musculoskeletal: No clubbing or cyanosis noted, no edema Skin: Warm Neurologic: No gross focal deficits noted. Current Medications: Current Medications Sig/Sarah Start time Last Medication Dose Route Stop Time Status Admin Aspirin 81 MG DAILY 09/01 1000 AC 09/03 PO 0921 Atorvastatin Calcium 80 MG 1700 09/01 1700 AC 09/02 PO 1652 Ceftriaxone Sodium 1,000 MG DAILY 08/31 1000 AC 09/03 IV 0921 Heparin Sodium 5,000 UNIT Q8 09/02 1400 AC 09/02 (Porcine) SC 1640 Magnesium Oxide 400 MG ONE ONE 09/03 929 DC 09/03 PO 09/03 0931 0921 Magnesium Sulfate 1 GM ONCE ONE 09/03 0915 CAN Dextrose/Water 100 ML IV 09/03 1314 Magnesium Sulfate 1 GM Q2H 09/02 1100 DC 09/02 Dextrose/Water 100 ML IV 09/02 1459 1300 Morphine Sulfate 2 MG Q6P PRN 08/31 0830 AC IV Multivitamins 1 TAB DAILY 08/31 1000 AC 09/03 PO 0921 Potassium Chloride 40 MEQ ONCE ONE 09/03 0915 DC 09/03 PO 09/03 0916 0921 Potassium Phosphate 15 mMol ONE ONE 09/02 1100 DC 09/02 Sodium Chloride 250 ML IV 09/02 1504 1653 Results Last 48 Hrs of Labs/Mics: Laboratory Tests 09/03/17 0640: Anion Gap 10, Estimated GFR 17 L, Glucose 94, Calcium 8.3 L, Phosphorus 3.6, Magnesium 1.6, Total Bilirubin 0.4, AST 30, ALT 76 H, Albumin 2.5 L, CBC w Diff NO MAN DIFF REQ, RBC 3.87 L, MCV 90.6, MCH 31.2 H, RDW 13.4, MPV 8.1, Gran % 60.8, Lymphocytes % 20.2 L, Monocytes % 15.2 H, Eosinophils % 3.4, Basophils % 0.4, Absolute Granulocytes 5.4, Absolute Lymphocytes 1.8, Absolute Monocytes 1.3 H, Absolute Eosinophils 0.3, Absolute Basophils 0, PUBS MCHC 34.5 09/02/17 0445: Anion Gap 8, Estimated GFR 14 L, Glucose 88, Calcium 7.9 L, Phosphorus 2.3 L, Magnesium 1.8, Total Bilirubin 0.3, AST 35, ALT 86 H, Troponin I 0.14 *H, Albumin 2.2 L, CBC w Diff NO MAN DIFF REQ, RBC 3.74 L, MCV 91.5, MCH 31.3 H, RDW 13.3, MPV 8.6, Gran % 75.5 H, Lymphocytes % 12.6 L, Monocytes % 10.2 H, Eosinophils % 1.2, Basophils % 0.5, Absolute Granulocytes 8.2 H, Absolute Lymphocytes 1.4, Absolute Monocytes 1.1 H, Absolute Eosinophils 0.1, Absolute Basophils 0.1, PUBS MCHC 34.2 Recent Imaging Studies: Telemetry tracings were personally reviewed and shows sinus rhythm Assessment/Plan Assessment/Plan 1. Resolving urosepsis 2. Type II ID 3. Acute on chronic renal insufficiency 4. Nephrolithiasis Remains hemodynamically stable with no complaints of chest pain or dyspnea. No sustained arrhythmias noted on telemetry. No regional wall motion abnormalities or significant valvular disease by echocardiogram. Dwain Calderon MD [facility] Continue telemetry? No
[2017-09-03 15:17] VITALS: BP 142/80
[2017-09-03 22:29] VITALS: BP 140/80
[2017-09-04 07:10] VITALS: BP 126/70
--- NOTE | 2017-09-04 07:40 | PN- Housestaff ---
Jarrett Moreira 09/04/17 0740: Subjective Follow-up For: UROSEPSOS LAURIE Subjective: I have seen and examined the patient. she is feeling better. cr trending down yesterday. Review of Systems Constitutional: Reports: see HPI. Objective Last 24 Hrs of Vital Signs/I&O Vital Signs Date Time Temp Pulse Resp B/P B/P Pulse O2 O2 Flow FiO2 Mean Ox Delivery Rate 09/04 0710 98.1 90 12 126/70 91 Room Air 09/03 2229 98.9 90 20 140/80 92 Room Air 09/03 1517 98.0 79 20 142/80 95 Intake & Output 09/04 1600 09/04 0800 09/04 0000 Intake Total 120 240 Output Total 600 650 Balance -480 -410 Intake, Oral 120 240 Number 0 0 Bowel Movements Output, Urine 600 650 Physical Exam General Appearance: Alert, Oriented X3, Cooperative, No Acute Distress Cardiovascular: Regular Rate, Normal S1, Normal S2 Lungs: Clear to Auscultation Abdomen: Normal Bowel Sounds, Soft, No Tenderness Neurological: Normal Gait Extremities: No Clubbing, No Cyanosis Current Medications: Current Medications Sig/Sarah Start time Last Medication Dose Route Stop Time Status Admin Aspirin 81 MG DAILY 09/01 1000 AC 09/04 PO 0940 Atorvastatin Calcium 80 MG 1700 09/01 1700 AC 09/03 PO 1652 Ceftriaxone Sodium 1,000 MG DAILY 08/31 1000 DC 09/04 IV 0940 Furosemide 40 MG ONCE ONE 09/03 1745 CAN IV 09/03 1746 Heparin Sodium 5,000 UNIT Q8 09/02 1400 AC 09/02 (Porcine) SC 1640 Influenza Virus 0.5 ML .STK-MED ONE 09/03 1647 DC Vaccine IM 09/03 1648 Morphine Sulfate 2 MG Q6P PRN 08/31 0830 AC IV Multivitamins 1 TAB DAILY 08/31 1000 AC 09/04 PO 0940 Assessment/Plan Assessment: Patient seen and examined. She was transferred out of the ICU after being managed for sepsis secondary to bacteremia of urologic origin Problems: 1. Sepsis of urologic origin 2. Type II myocardial infarction 3. Acute kidney injury secondary to sepsis and obstructive uropathy Plan: -Continue current course of intravenous antibiotic therapy. If patient continues to remain clinically stable she may be transitioned to oral antibiotic therapy to complete 14 days of treatment. She should have blood cultures repeated as an outpatient to document clearance of bacteremia. -Renal function has improved although still abnormal, 2.3 today -nephrology, urology on board -Mobilize patient. -Cardiology follow-up appreciated. Discontinue telemetry monitoring. c/w aspirin and statin Follow-up with the cardiology service regarding any need for further cardiac workup such as stress test. Problem List: 1. LAURIE (acute kidney injury) 2. Kidney stone on left side Pain Ratin Pain Location: no pain Pain Goal: Pain 4 or less Pain Plan: same Tomorrow's Labs & Rationales: dc to home today Elvia GREENBERGJuan Josésirena 09/04/17 1245: Attending MD Review Statement Attending Statement Attending MD Statement: examined this patient, discuss w/resident/PA/REFORMATORY ATTENDANT, agreed w/resident/PA/REFORMATORY ATTENDANT, discussed with family, reviewed EMR data (avail), discussed with nursing, discussed with case mgmt, amended to note Attending Assessment/Plan: Patient seen and examined. Daughter was present at the bedside. Resting comfortably and not in any acute distress. No issues overnight. No events on telemetry. He had to go home today. Denies chest pain or palpitations. Denies nausea vomiting. Denies abdominal pain. Valdez catheter was discontinued yesterday without incident. Denies dysuria. He remains afebrile hemodynamically stable. On examination lungs are clear bilaterally abdomen is soft and nontender and she has no peripheral edema. Recommendations: -She is medically stable to be discharged home today. -She should follow-up with cardiology service as an outpatient and elective stress test. -She is to follow with the urology service as an outpatient for stent removal and lithotripsy. -We will recommended follow-up with her primary care provider for repeat blood work and blood cultures as an outpatient. We anticipate further improvement in her creatinine with relief of her obstruction. -This was explained in detail to the patient and her family. They verbalized understanding.
[2017-09-04 08:11] LABS: ABSOLUTE BASOPHIL COUNT 0 /CUMM (0.0-0.2); ABSOLUTE EOSINOPHIL COUNT 0.3 /CUMM (0.0-0.7); ABSOLUTE GRANULOCYTE CT 6.7 /CUMM (1.4-6.5); ABSOLUTE MONOCYTE COUNT 1.4 /CUMM (0.10-0.60); BASOPHIL % 0.4 % (0.0-2.0); EOSINOPHIL % 3.1 % (0-5); GRANULOCYTE % 64.4 % (42.2-75.2); HEMATOCRIT 32.7 % (37-47); MEAN CORPUSCULAR HGB 31.3 PG (27.0-31.0); MEAN CORPUSCULAR HGB CONC 34.5 G/DL (33.0-37.0); MEAN CORPUSCULAR VOLUME 90.9 FL (81.0-99.0); MEAN PLATELET VOLUME 8.1 FL (7.4-10.4); PLATELET COUNT 196 /CUMM (130-400); WHITE BLOOD CELL COUNT 10.4 /CUMM (4.8-10.8)
--- NOTE | 2017-09-04 08:58 | Discharge Summary ---
Visit Information Visit Dates Admission Date: 08/31/17 Discharge Date: 09/04/2017 Hospital Course Course Attending Physician: Elissa GREENBERG,Damien Vora Primary Care Physician: Luann Moya MD Hospital Course: 62 yo F with h/o nephrolithiasis and hepatic steatosis, presented to the ED for evaluation of left flank pain, malaise and fatigue for past 2 days. She reported generalized malaise, fatigue, low back pain, foul-smelling urine, lightheadedness with nausea and vomiting, nonbloody diarrhea with poor by mouth intake. At admission , Vitals: afebrile, HR 90-110's, BP 135/73 -> 99/52 with fluids, sats 98% RA. Labs: no leukocytosis, bands 9, Plt 123, INR 1.30, D-dimer 9356, Na 135, K 3.0, bicarb 21, BUN 51, creat 4.0 (baseline not known), glucose 106, lactic acid 1.6, LFTs normal, except for elevated Alk phos, trop 0.21 -> 0.25, Mag 1.1 UA brown, turbid, proteinuria, trace ketones, positive nitrite, large leukocyte esterase, RBC > 75, WBC >75, many bacteria, large Hb. CT abd/pelvis: hydronephrosis of left kidney due to obstructing 6 x 4 mm stone at ureteropelvic junction, heptomegaly with fatty change, cholelithiasis. Chest x-ray no acute pathology. EKG: sinus tachycardia with right axis deviation, inferior Q-waves, S1Q3T3 with ST-T changes (V2-6) (no old EKG to compare). she was admitted to ICU then transferred to telemetry and treated for these medical conditions: #1 Severe sepsis likely of urological origin/left hydronephrosis due to obstructive uropathy with multi organ failure patient was put on ceftriaxone IV with aggresive IV hydration. uc and bc were + for E.coliurology put the left ureter stent and patient condition improved and transferred out of ICU to telemetry. IV abx changed to augmentin for total 14 days of abx therap. she should get outpatient bc one more time for making sure the infection is eradicated. #2 LAURIE with metabolic acidosis due to obstructive uropathy(no baseline available ) baseline cr 0.6 before admission. her cr decreased from 4 to 2.3 during hospitalization. nephrology was also on board recommanding conservative therapy. patient should check CMP on 09/07/2017 and follow up with PCP. #3 Elevated troponin likely type II SD versus NSTEMI -PE ruled out with V/Q (low probility) EKG showed questionable inferior Q waves. Troponin increased to maximum 0.44. Patient didn't have any chest pain during the hospitalization. Echocardiogram did not show any significant wall motion abnormality BES more than 60%. Patient should follow-up with cardiology in outpatient setting for stress test. Until then patient should be on high-dose aspirin and statin. #swelling of the left hand with increased d-dimer DVT ruled out in the left hand and both legs. Allergies: Coded Allergies: No Known Allergies (08/30/17) Significant Procedures: PATIENT: KRISTI PINK PRESENT AGE: 62 PATIENT ACCOUNT NO: [id number] DATE OF : 55 ADMIT/SERVICE DATE: 08/31/17 ATTENDING PHYSICIAN: [facility] CONFIDENTIAL COPY Operative/Inv Procedure Report Surgery Date: 08/31/17 Name of Procedure: cystoscopy: left stent insertion Pre-Operative Diagnosis: left hydro: with obstruction and sepsis Post-Operative Diagnosis: same Estimated Blood Loss: scant Surgeon/Field Nurse: MD Darrin, [place] Anesthesia: moderate sedation Complications: none Condition: improved Operative/Procedure Note Note: The patient was taken to the operating room placed OR table in supine position. Timeout was performed, with the patient awake, in order to confirm identity, procedure, antibiotics, anesthesia, and other pertinent perioperative information. After adequate anesthesia and antibiotics, the patient was then placed lithotomy stirrups, draped and prepped in the usual surgical fashion. A 22 Gibraltarian cystoscope sheath with 30 angle lens was inserted into the the bladder without difficulty. Upon thorough and systematic surveillance, the bladder was noted to be free of tumor free of stone. Both ureteral orifices were in their orthotopic position with clear eflux from the left orifice, and no eflux from the right. The right orifice was intubated with a 0.035 Glidewire, which was advanced into the right ureter and renal pelvis with out difficulty. Over this Glidewire a 6 x 22 Bard onlay stent was rail-roaded into the right ureter without difficulty. With the proximal coil in the left renal pelvis, and the distal coil in the bladder, the Glidewire was removed, and the stent remained in proper place. A large amount of purulent fluid from the race side after placement of the stent. The bladder was then drained via the cystoscope, and the scope was removed without difficulty. The patient tolerated procedure well, was taken to the ICU in satisfactory condition. Discharge Disposition: PACU CC: Rick Clifford MD DICTATED BY: Rick Clifford MD DATE/TIME DICTATED:09/04/171148 COAL CRUSHER OPERATOR:IAIN DATE/TIME TRANSCRIBED:09/04/171148 REPORT NUMBER:[id number] CONFIDENTIAL, DO NOT COPY WITHOUT APPROPRIATE AUTHORIZATION. <Electronically signed by Rick Clifford MD> 09/04/17 115 Pertinent Lab Results: PATIENT: KRISTI PINK PRESENT AGE: 62 PATIENT ACCOUNT NO: [id number] : 55 LOCATION: ER ORDERING PHYSICIAN: Florian TIM SERVICE DATE: 08/30/17 EXAM TYPE: RAD - XRY-CHEST XRAY, TWO VIEWS EXAMINATION: XR CHEST CLINICAL INFORMATION: Cough, fever COMPARISON: None TECHNIQUE: 2 views of the chest were obtained. FINDINGS: No significant abnormality is noted involving the heart, lungs, mediastinum, bony thorax or soft tissues. IMPRESSION: No acute abnormality of the chest. DICTATED BY: Dami Rodriguez MD DATE/TIME DICTATED:08/30/172227 COAL CRUSHER OPERATOR:CHARISMA DATE/TIME TRANSCRIBED:08/30/172227 CONFIDENTIAL, DO NOT COPY WITHOUT APPROPRIATE AUTHORIZATION. <Electronically signed in Other Vendor System> SIGNED BY: Dami Rodriguez MD 08/30/172231 ===== PATIENT: KRISTI PINK PRESENT AGE: 62 PATIENT ACCOUNT NO: [id number] : 55 LOCATION: ER ORDERING PHYSICIAN: Florian TIM SERVICE DATE: 08/30/17 EXAM TYPE: CAT - CT ABD & PELVIS W/O IV CONTRAS EXAMINATION: CT ABDOMEN AND PELVIS WITHOUT CONTRAST CLINICAL INFORMATION: Left back pain. COMPARISON: None. TECHNIQUE: Multidetector volumetric imaging was performed from the superior aspect of the liver through the pubic symphysis. Sagittal and coronal reformatted images were obtained on the technologist's workstation. DLP: 277.63 mGy-cm FINDINGS: LUNG BASES: The visualized lung bases are unremarkable. LIVER, GALLBLADDER, AND BILIARY TREE: There is hepatomegaly. Liver measures 22.4 cm superior inferior. Diffuse low attenuation of liver parenchyma due to fatty change. No focal liver lesion. No intrahepatic bile duct dilatation. There are tiny calcified gallstones layering dependently in the gallbladder. No gallbladder wall thickening or edema around the gallbladder. No bile duct dilatation. PANCREAS: Unremarkable. SPLEEN: Unremarkable. ADRENAL GLANDS: Unremarkable. KIDNEYS AND URETERS: There is significant hydronephrosis of left kidney with distention of renal pelvises and calyces and edema around the kidney. This is due to an obstructing stone in the proximal left ureter at the ureteropelvic junction. The stone measures 6 x 4 mm. There is no additional 2 mm nonobstructive stone and 4 mm nonobstructive stone in the lower pole of left kidney. Right kidney and ureter are normal. BLADDER: Unremarkable. GASTROINTESTINAL TRACT: No acute change of the bowel. No bowel obstruction. No bowel wall thickening or edema. Moderate amount of stool in the colon. There are some flecks of high density material scattered throughout the stool in the right colon and transverse colon, or lead ingested material. The appendix is not visualized. No inflammation the mesentery right lower quadrant. Small bowel loops unremarkable. ABDOMINAL WALL: No significant hernia is appreciated. LYMPH NODES: Normal. VASCULAR: Unremarkable. PELVIC VISCERA: Unremarkable. OSSEOUS STRUCTURES: Unremarkable. IMPRESSION: 1. Hydronephrosis of the left kidney due to an obstructing 6 x 4 mm stone at the ureteropelvic junction. 2 additional small nonobstructive calculi in left kidney. 2. Cholelithiasis. 3. Hepatomegaly with diffuse fatty change of liver. DICTATED BY: Dami Rodriguez MD DATE/TIME DICTATED:08/30/172231 COAL CRUSHER OPERATOR:CHARISMA DATE/TIME TRANSCRIBED:08/30/172231 CONFIDENTIAL, DO NOT COPY WITHOUT APPROPRIATE AUTHORIZATION. <Electronically signed in Other Vendor System> SIGNED BY: Dami Rodriguez MD 08/30/17 5722 PATIENT: KRISTI PINK PRESENT AGE: 62 PATIENT ACCOUNT NO: [id number] : 55 LOCATION: [facility] ORDERING PHYSICIAN: Beatriz Amaya MD SERVICE DATE: 08/31/17- EXAM TYPE: CARD - ECHOCARDIOGRAM KRISTI PINK Age: 62 : 1955 Gender: F Exam Date: 08/31/2017 08:38 Exam Location: [facility] Ht (in): 59 Wt (lb): 132 BSA: 1.60 BP: 115 / 67 Ordering Physician: Beatriz Amaya MD Referring Physician: Beatriz Amaya MD Technologist: [facility] Room Number: 104 Indications: CONGENITAL HEART DISEASE Rhythm: Sinus Technical Quality: Good FINDINGS Left Ventricle Normal left ventricular size, wall thickness and systolic function with no obvious regional wall motion abnormalities. Normal left ventricular diastolic filling pattern for age. The ejection fraction is visually estimated at >65 %. Right Ventricle The right ventricle is normal in size and function. Right Atrium The right atrium is normal in size. Left Atrium The left atrium is normal in size. The interatrial septum is intact. Mitral Valve The mitral valve is normal in structure and function. There is rrace to mild mitral regurgitation. Aortic Valve Structurally normal aortic valve without significant sclerosis or stenosis. There is no aortic regurgitation. Tricuspid Valve The tricuspid valve is normal in structure and function. There is trace to mild tricuspid regurgitation. Pulmonary artery systolic pressure is upper normal limits. Pulmonic Valve Structurally normal pulmonic valve. There is no pulmonic regurgitation. Pericardium Normal pericardium without effusion. No pleural effusion. Great Vessels Normal aortic root dimension. The aortic arch and great vessels are well seen and are normal. CONCLUSIONS No significant chamber abnormalities. No significant valve abnormalities. Normal transthoracic echocardiogram. Physiologic valvular regurgitation. Pulmonary artery systolic pressure is upper normal limits. Andrea Bhakta M.D. (Electronically Signed) Final Date: 31 August 2017 13:38 MEASUREMENTS (Male / Female) Normal Values 2D ECHO LV Diastolic Diameter PLAX 3.7 cm 4.2 - 5.9 / 3.9 - 5.3 cm LV Systolic Diameter PLAX 2.8 cm 2.1 - 4.0 cm LV Fractional Shortening PLAX 24.3 % 25 - 46 % LV Ejection Fraction 2D Teich 49.2 % IVS Diastolic Thickness 0.9 cm LVPW Diastolic Thickness 1.0 cm LV Relative Wall Thickness 0.5 RV Internal Dim ED PLAX 2.6 cm 1.9 - 3.8 cm LVOT Diameter 1.7 cm Aortic Root Diameter 2.3 cm LA Systolic Diameter LX 2.3 cm 3.0 - 4.0 / 2.7 - 3.8 cm Ascending Aorta Diameter 2.8 cm DOPPLER AV Peak Velocity 91.0 cm/s AV Peak Gradient 3.3 mmHg AV Mean Velocity 71.1 cm/s AV Mean Gradient 2.0 mmHg AV Velocity Time Integral 19.4 cm LVOT Peak Velocity 74.4 cm/s LVOT Peak Gradient 2.2 mmHg LVOT Mean Velocity 51.3 cm/s LVOT Mean Gradient 1.0 mmHg LVOT Velocity Time Integral 17.1 cm LVOT Stroke Volume 38.8 cm AV Area Cont Eq vti 2.0 cm AV Area Cont Eq pk 1.9 cm MV Peak Velocity 81.0 cm/s MV Peak Gradient 2.6 mmHg MV Mean Velocity 56.2 cm/s MV Mean Gradient 1.0 mmHg Mitral E Point Velocity 72.1 cm/s Mitral A Point Velocity 62.7 cm/s Mitral E to A Ratio 1.1 MV PHT Velocity 90.2 cm/s MV Deceleration Tyler 502.0 cm/s MV Pressure Half Time 53.9 ms MV Area PHT 4.1 cm MV Deceleration Time 155.0 ms MR Peak Velocity 423.0 cm/s MR Peak Gradient 71.6 mmHg TR Peak Velocity 277.0 cm/s TR Peak Gradient 30.7 mmHg Right Atrial Pressure 10.0 mmHg Pulmonary Artery Systolic Pressu 40.7 mmHg Right Ventricular Systolic Press 40.7 mmHg PV Peak Velocity 66.2 cm/s PV Peak Gradient 1.8 mmHg PV Mean Velocity 53.0 cm/s PV Mean Gradient 1.0 mmHg PV Velocity Time Integral 16.0 cm LV E' Lateral Velocity 9.7 cm/s Mitral E to LV E' Lateral Ratio 7.5 LV E' Septal Velocity 8.7 cm/s Mitral E to LV E' Septal Ratio 8.3 DICTATED BY: Andrea Bhakta MD, V. DATE/TIME DICTATED:08/31/171337 COAL CRUSHER OPERATOR:CHARISMA DATE/TIME TRANSCRIBED:08/31/171337 CONFIDENTIAL, DO NOT COPY WITHOUT APPROPRIATE AUTHORIZATION. <Electronically signed in Other Vendor System> SIGNED BY: Andrea Bhakta MD, V. 08/31/17 1339 PATIENT: KRISTI PINK PRESENT AGE: 62 PATIENT ACCOUNT NO: [id number] : 55 LOCATION: [facility] ORDERING PHYSICIAN: Beatriz Amaya MD SERVICE DATE: 08/31/17- EXAM TYPE: CARD - ECHOCARDIOGRAM KRISTI PINK Age: 62 : 1955 Gender: F Exam Date: 08/31/2017 08:38 Exam Location: [facility] Ht (in): 59 Wt (lb): 132 BSA: 1.60 BP: 115 / 67 Ordering Physician: Beatriz Amaya MD Referring Physician: Beatriz Amaya MD Technologist: [facility] Room Number: 104 Indications: CONGENITAL HEART DISEASE Rhythm: Sinus Technical Quality: Good FINDINGS Left Ventricle Normal left ventricular size, wall thickness and systolic function with no obvious regional wall motion abnormalities. Normal left ventricular diastolic filling pattern for age. The ejection fraction is visually estimated at >65 %. Right Ventricle The right ventricle is normal in size and function. Right Atrium The right atrium is normal in size. Left Atrium The left atrium is normal in size. The interatrial septum is intact. Mitral Valve The mitral valve is normal in structure and function. There is rrace to mild mitral regurgitation. Aortic Valve Structurally normal aortic valve without significant sclerosis or stenosis. There is no aortic regurgitation. Tricuspid Valve The tricuspid valve is normal in structure and function. There is trace to mild tricuspid regurgitation. Pulmonary artery systolic pressure is upper normal limits. Pulmonic Valve Structurally normal pulmonic valve. There is no pulmonic regurgitation. Pericardium Normal pericardium without effusion. No pleural effusion. Great Vessels Normal aortic root dimension. The aortic arch and great vessels are well seen and are normal. CONCLUSIONS No significant chamber abnormalities. No significant valve abnormalities. Normal transthoracic echocardiogram. Physiologic valvular regurgitation. Pulmonary artery systolic pressure is upper normal limits. Andrea Bhakta M.D. (Electronically Signed) Final Date: 31 August 2017 13:38 MEASUREMENTS (Male / Female) Normal Values 2D ECHO LV Diastolic Diameter PLAX 3.7 cm 4.2 - 5.9 / 3.9 - 5.3 cm LV Systolic Diameter PLAX 2.8 cm 2.1 - 4.0 cm LV Fractional Shortening PLAX 24.3 % 25 - 46 % LV Ejection Fraction 2D Teich 49.2 % IVS Diastolic Thickness 0.9 cm LVPW Diastolic Thickness 1.0 cm LV Relative Wall Thickness 0.5 RV Internal Dim ED PLAX 2.6 cm 1.9 - 3.8 cm LVOT Diameter 1.7 cm Aortic Root Diameter 2.3 cm LA Systolic Diameter LX 2.3 cm 3.0 - 4.0 / 2.7 - 3.8 cm Ascending Aorta Diameter 2.8 cm DOPPLER AV Peak Velocity 91.0 cm/s AV Peak Gradient 3.3 mmHg AV Mean Velocity 71.1 cm/s AV Mean Gradient 2.0 mmHg AV Velocity Time Integral 19.4 cm LVOT Peak Velocity 74.4 cm/s LVOT Peak Gradient 2.2 mmHg LVOT Mean Velocity 51.3 cm/s LVOT Mean Gradient 1.0 mmHg LVOT Velocity Time Integral 17.1 cm LVOT Stroke Volume 38.8 cm AV Area Cont Eq vti 2.0 cm AV Area Cont Eq pk 1.9 cm MV Peak Velocity 81.0 cm/s MV Peak Gradient 2.6 mmHg MV Mean Velocity 56.2 cm/s MV Mean Gradient 1.0 mmHg Mitral E Point Velocity 72.1 cm/s Mitral A Point Velocity 62.7 cm/s Mitral E to A Ratio 1.1 MV PHT Velocity 90.2 cm/s MV Deceleration Tyler 502.0 cm/s MV Pressure Half Time 53.9 ms MV Area PHT 4.1 cm MV Deceleration Time 155.0 ms MR Peak Velocity 423.0 cm/s MR Peak Gradient 71.6 mmHg TR Peak Velocity 277.0 cm/s TR Peak Gradient 30.7 mmHg Right Atrial Pressure 10.0 mmHg Pulmonary Artery Systolic Pressu 40.7 mmHg Right Ventricular Systolic Press 40.7 mmHg PV Peak Velocity 66.2 cm/s PV Peak Gradient 1.8 mmHg PV Mean Velocity 53.0 cm/s PV Mean Gradient 1.0 mmHg PV Velocity Time Integral 16.0 cm LV E' Lateral Velocity 9.7 cm/s Mitral E to LV E' Lateral Ratio 7.5 LV E' Septal Velocity 8.7 cm/s Mitral E to LV E' Septal Ratio 8.3 DICTATED BY: Yony GREENBERG,Andrea Pereira DATE/TIME DICTATED:12/29/17 / 1338 COAL CRUSHER OPERATOR:RAD.LIVE DATE/TIME TRANSCRIBED:08/31/171337 CONFIDENTIAL, DO NOT COPY WITHOUT APPROPRIATE AUTHORIZATION. <Electronically signed in Other Vendor System> SIGNED BY: Andrea Bhakta MD, V. 08/31/179 ======= PATIENT: KRISTI PINK PRESENT AGE: 62 PATIENT ACCOUNT NO: [id number] : 55 LOCATION: [facility] ORDERING PHYSICIAN: Jayashree Mayers MD SERVICE DATE: 08/31/17 EXAM TYPE: NUC - LUNG SCAN (V/Q) EXAMINATION: PULMONARY VENTILATION PERFUSION STUDY CLINICAL INFORMATION: Elevated d-dimer and EKG changes. COMPARISON: Chest x-ray 08/30/2017. TECHNIQUE: Serial gamma scintillation camera images were obtained over the posterior chest during the single breath, equilibrium rebreathing and washout of 14.9 mCi Xe 133 gas. The patient then received 4.2 mCi Tc-99m MAA intravenously and a 6-view perfusion study was performed. FINDINGS: Ventilation images: On the single breath and equilibrium images there is homogeneous distribution of gas bilaterally. During the washout phase there is some retention in the left upper lobe. Perfusion images: No segmental perfusion defects are present. There is homogeneous distribution of activity bilaterally. There are no focal anatomic appearing perfusion defects present. IMPRESSION: 1. Ventilation perfusion scan has very low probability for pulmonary embolus. DICTATED BY: Avinash Fish MD DATE/TIME DICTATED:08/31/171124 COAL CRUSHER OPERATOR:LIVE DATE/TIME TRANSCRIBED:08/31/171124 CONFIDENTIAL, DO NOT COPY WITHOUT APPROPRIATE AUTHORIZATION. <Electronically signed in Other Vendor System> SIGNED BY: Avinash Fish MD 08/31/17 1131 ======= PATIENT: KRISTI PINK PRESENT AGE: 62 PATIENT ACCOUNT NO: [id number] : 55 LOCATION: [facility] ORDERING PHYSICIAN: Rick Clifford MD SERVICE DATE: 08/31/17-1148 EXAM TYPE: RAD - XRY-KIDNEYS, URETERS, BLADDER EXAMINATION: XR KIDNEYS, URETER, BLADDER CLINICAL INDICATION: Left ureteral stent placement. Postoperative. COMPARISON: CT images of abdomen pelvis from 08/30/2017 TECHNIQUE: AP view of the abdomen. FINDINGS: Cholelithiasis. Bowel gas pattern is normal. Correlate for history of recent use of iodinated contrast (e.g., for ureterography) since there is subtle hyperdensity in the expected region of the lower pole calyces of the left kidney and urinary bladder. The left ureteral stent is in satisfactory position. Its proximal loop is at the level of the renal pelvis and distal loop is at the level of the bladder. There are no stones identified along the surface of the stent. Multiple phleboliths are present within the pelvis. No acute osseous abnormality. IMPRESSION: Left ureteral stent is in satisfactory position. DICTATED BY: Gigi nEgel MD DATE/TIME DICTATED:08/31/171317 COAL CRUSHER OPERATOR:CHARISMA DATE/TIME TRANSCRIBED:08/31/171317 CONFIDENTIAL, DO NOT COPY WITHOUT APPROPRIATE AUTHORIZATION. <Electronically signed in Other Vendor System> SIGNED BY: Gigi Engel MD 08/31/17 1326 PATIENT: KRISTI PINK PRESENT AGE: 62 PATIENT ACCOUNT NO: [id number] : 55 LOCATION: [facility] ORDERING PHYSICIAN: Jarrett Moreira MD SERVICE DATE: 09/01/17- EXAM TYPE: US - US-EXT BILAT VENOUS DOPPLER EXAMINATION: US TRIPLEX OF LOWER EXTREMITIES, BILATERAL CLINICAL INFORMATION: Bilateral leg swelling with positive d-dimer COMPARISON: None TECHNIQUE: Color-flow triplex imaging with spectral analysis and compression Doppler were performed on the lower extremities. FINDINGS: Respiratory variation, normal compression and augmented flow are noted throughout the lower extremities. The visualized common femoral vein, superficial femoral vein, profunda femoral vein, popliteal vein and midcalf peroneal and posterior tibial venous segments show no evidence of deep venous thrombosis. There is no Ro's cyst. IMPRESSION: Normal triplex scan without evidence of deep venous thrombosis involving the lower extremities. DICTATED BY: Michael Youssef MD DATE/TIME DICTATED:09/01/171318 COAL CRUSHER OPERATOR:CHARISMA DATE/TIME TRANSCRIBED:09/01/171318 CONFIDENTIAL, DO NOT COPY WITHOUT APPROPRIATE AUTHORIZATION. <Electronically signed in Other Vendor System> SIGNED BY: Michael Youssef MD 09/01/17 1323 PATIENT: KRISTI PINK PRESENT AGE: 62 PATIENT ACCOUNT NO: [id number] : 55 LOCATION: [facility] ORDERING PHYSICIAN: Jarrett Moreira MD SERVICE DATE: 09/01/17- EXAM TYPE: US - US-UNILATERAL VENOUS DOPPLER EXAMINATION: US TRIPLEX LOWER EXTREMITY, LEFT CLINICAL INFORMATION: Left arm edema and swelling. COMPARISON: None. TECHNIQUE: Color-flow triplex imaging with spectral analysis and compression Doppler were performed on the left upper extremity. FINDINGS: The left internal jugular, subclavian, axillary, brachial, basilic and cephalic vein segments show normal flow and compressibility. No deep venous thrombosis is seen.. IMPRESSION: Normal triplex scan without evidence of deep venous thrombosis involving the left upper extremity. DICTATED BY: J Carlos Macias MD DATE/TIME DICTATED:09/01/171319 COAL CRUSHER OPERATOR:CHARISMA DATE/TIME TRANSCRIBED:09/01/171319 CONFIDENTIAL, DO NOT COPY WITHOUT APPROPRIATE AUTHORIZATION. <Electronically signed in Other Vendor System> SIGNED BY: J Carlos Macias MD 09/01/17 1325 Disposition Summary Disposition Principal Diagnosis: Urosepsis due to obstructive kidney stone Additional Diagnosis: Acute kidney injury SD type II Discharge Disposition: home or self care Discharge Instructions General Discharge Information Code Status: Full Code Patient's Diet: Heart healthy Patient's Activity: As tolerated Follow-Up Instructions/Appts: -Please follow-up with your primary care provider within 7 days after discharge. -Please follow-up with Dr. Bhakta senior java developer or your senior java developer of your choice for outpatient stress test after discharge. -Please do blood culture test and CMP on Sunday09/07/2017. -Please follow-up with your urologist after discharge regarding your kidney stones. -We have made changes to your home medications, please read the instructions carefully. -Please come back to the hospital if your symptoms got worse. Medications at Discharge Discharge Medications: Continue taking these medications: Calcium Carb/Vitamin D3/Vit K1 (Calcium + D Soft Chewable Tab) 500 MG CALCIUM-1, 000 UNIT-40 MCG TAB.CHEW 2 Tablet ORAL DAILY Comments: Last Taken: NOT GIVEN IN HOSPITAL Time: Multivitamin (Animal Chews) 1 EACH TAB.CHEW 2 Tablet ORAL DAILY Comments: Last Taken: 09/04/17 Time: 9:40 AM Start taking the following new medications: Amoxicillin/Clavulanate Potass (Amox-Clav 875-125 MG Tablet) 875 MG-125 MG TABLET 1 Tablet ORAL TWICE DAILY Qty = 18 No Refills Instructions: START FROM 09/05/2017 Comments: Last Taken: NOT GIVEN IN HOSPITAL Time: Atorvastatin Calcium (Atorvastatin Calcium) 80 MG TABLET 80 Milligram ORAL 5 PM Qty = 30 No Refills Instructions: . Comments: Last Taken: 09/03/17 Time: 5:00 PM Aspirin (Aspirin*) 81 MG TAB.CHEW 81 Milligram ORAL DAILY Qty = 30 No Refills Instructions: . Comments: Last Taken: 09/04/17 Time: 9:40 AM Copies To: Kvng GREENBERG,Joon; Pradeep GREENBERG,Roscoe Maldonado; Brittani GREENBERG,Florian Clifford MD, Rick Hughes MD Review Statement Documenting Attending: Ramin Gan MD Other Findings: Discharged in stable condition.
--- NOTE | 2017-09-04 09:34 | PN- Cardiology ---
Subjective Subjective: The patient is feeling well. She is on telemetry. She is ambulatory. She has no cardiac symptoms. There is question of discharge today. Objective Vital Signs and I&Os Vital Signs Date Time Temp Pulse Resp B/P B/P Pulse O2 O2 Flow FiO2 Mean Ox Delivery Rate 09/04 0710 98.1 90 12 126/70 91 Room Air 09/03 2229 98.9 90 20 140/80 92 Room Air 09/03 1517 98.0 79 20 142/80 95 Intake & Output 09/04 1600 09/04 0800 09/04 0000 09/03 1600 09/03 0800 09/03 0000 Intake Total 120 240 600 250 Output Total 600 892 888 5220 1350 Balance -480 -410 -150 -1700 -1100 Intake, IV 250 Intake, Oral 120 240 600 Number 0 0 Bowel Movements Output, Urine 600 824 279 8355 1350 Physical Exam: She is in no distress HEENT exam is normal Chest is clear Heart regular rhythm, no murmurs Current Medications: Current Medications Sig/Sarah Start time Last Medication Dose Route Stop Time Status Admin Aspirin 81 MG DAILY 09/01 1000 AC 09/03 PO 0921 Atorvastatin Calcium 80 MG 1700 09/01 1700 AC 09/03 PO 1652 Ceftriaxone Sodium 1,000 MG DAILY 08/31 1000 AC 09/03 IV 0921 Furosemide 40 MG ONCE ONE 09/03 1745 CAN IV 09/03 1746 Heparin Sodium 5,000 UNIT Q8 09/02 1400 AC 09/02 (Porcine) SC 1640 Influenza Virus 0.5 ML .STK-MED ONE 09/03 164 DC Vaccine IM 09/03 164 Magnesium Oxide 400 MG ONE ONE 09/03 0930 DC 09/03 PO 09/03 0931 0921 Morphine Sulfate 2 MG Q6P PRN 08/31 0830 AC IV Multivitamins 1 TAB DAILY 08/31 1000 AC 09/03 PO 0921 Results Last 48 Hrs of Labs/Mics: Laboratory Tests 09/04/17 0625: Anion Gap 9, Estimated GFR 21 L, BUN/Creatinine Ratio 20.4, CBC w Diff NO MAN DIFF REQ, RBC 3.60 L, MCV 90.9, MCH 31.3 H, RDW 13.0, MPV 8.1, Gran % 64.4, Lymphocytes % 19.0 L, Monocytes % 13.1 H, Eosinophils % 3.1, Basophils % 0.4, Absolute Granulocytes 6.7 H, Absolute Lymphocytes 2.0, Absolute Monocytes 1.4 H, Absolute Eosinophils 0.3, Absolute Basophils 0, PUBS MCHC 34.5 09/03/17 0640: Anion Gap 10, Estimated GFR 17 L, Glucose 94, Calcium 8.3 L, Phosphorus 3.6, Magnesium 1.6, Total Bilirubin 0.4, AST 30, ALT 76 H, Albumin 2.5 L, CBC w Diff NO MAN DIFF REQ, RBC 3.87 L, MCV 90.6, MCH 31.2 H, RDW 13.4, MPV 8.1, Gran % 60.8, Lymphocytes % 20.2 L, Monocytes % 15.2 H, Eosinophils % 3.4, Basophils % 0.4, Absolute Granulocytes 5.4, Absolute Lymphocytes 1.8, Absolute Monocytes 1.3 H, Absolute Eosinophils 0.3, Absolute Basophils 0, PUBS MCHC 34.5 Assessment/Plan Assessment/Plan The patient is hemodynamically stable. There have been no arrhythmias. Her renal function is slowly improving. Her peak troponin was 0.44. The patient can be discontinued from telemetry monitoring. She should at some point have a stress test as an outpatient when her clinical condition allows. Continue telemetry? No
[2017-09-04] MEDS ORDERED: ATORVASTATIN CA80 M1 PO ×2 (10:33→11:31)
[2017-09-04] MEDS ORDERED: ASPIRIN81 M4 PO ×2 (10:33→11:31)
[2017-09-04] MEDS ORDERED: AMOX-CLAV 875-1 EACH PO ×2 (10:50→11:31)
--- NOTE | 2017-09-04 10:51 | Patient Discharge Instructions ---
Discharge Instructions General Discharge Information You were seen/treated for: Urosepsis and obstructive kidney stones demand ischemia Special Instructions: -Please follow-up with your primary care provider within 7 days after discharge. -Please follow-up with Dr. Bhakta bobbin stripper or your bobbin stripper of your choice for outpatient stress test after discharge. -Please do blood culture test and CMP on Sunday09/07/2017. -Please follow-up with your urologist after discharge regarding your kidney stones. -We have made changes to your home medications, please read the instructions carefully. -Please come back to the hospital if your symptoms got worse. Diet Recommended Diet: Heart Healthy Activity Full Activity/No Limits: Yes ( TOLERATED) Acute Coronary Syndrome Inclusion Criteria At DC or during hospital stay patient has or had the following: ACS DIAGNOSIS No Discharge Core Measures Meds if any: Prescribed or Continued at Discharge Meds if any: NOT Prescribed or Continued at Discharge Congestive Heart Failure Inclusion Criteria At DC or during hospital stay patient has or had the following: CHF DIAGNOSIS No Discharge Core Measures Meds if any: Prescribed or Continued at Discharge Meds if any: NOT Prescribed or Continued at Discharge Cerebrovascular accident Inclusion Criteria At DC or during hospital stay patient has or had the following: CVA/TIA Diagnosis No Discharge Core Measures Meds if any: Prescribed or Continued at Discharge Meds if any: NOT Prescribed or Continued at Discharge Venous thromboembolism Inclusion Criteria VTE Diagnosis No VTE Type NONE VTE Confirmed by (Test) NONE Discharge Core Measures - Per Current guidelines, there needs to be overlap - treatment for the first 5 days of Warfarin therapy. - If discharged on Warfarin prior to 5 days of - overlap therapy, the patient will need to be - assessed for post discharge needs including - *Post discharge parental anticoagulation - *Warfarin and/or parental anticoagulation education - *Follow up date to check INR post discharge At least 5 days overlap therapy as Inpatient No Meds if any: Prescribed or Continued at Discharge Note: Overlap Therapy is Warfarin and Anticoagulant Meds if any: NOT Prescribed or Continued at Discharge
--- NOTE | 2017-09-04 11:51 | Operative Report ---
See Addendum Operative/Inv Procedure Report Surgery Date: 08/31/17 Name of Procedure: cystoscopy: left stent insertion Pre-Operative Diagnosis: left hydro: with obstruction and sepsis Post-Operative Diagnosis: same Estimated Blood Loss: scant Surgeon/Supervisor [employer]: MD Darrin, Rick-urology Anesthesia: moderate sedation Complications: none Condition: improved Operative/Procedure Note Note: The patient was taken to the operating room placed OR table in supine position. Timeout was performed, with the patient awake, in order to confirm identity, procedure, antibiotics, anesthesia, and other pertinent perioperative information. After adequate anesthesia and antibiotics, the patient was then placed lithotomy stirrups, draped and prepped in the usual surgical fashion. A 22 Turkish cystoscope sheath with 30 angle lens was inserted into the the bladder without difficulty. Upon thorough and systematic surveillance, the bladder was noted to be free of tumor free of stone. Both ureteral orifices were in their orthotopic position with clear eflux from the left orifice, and no eflux from the right. The right orifice was intubated with a 0.035 Glidewire, which was advanced into the right ureter and renal pelvis with out difficulty. Over this Glidewire a 6 x 22 Bard onlay stent was rail-roaded into the right ureter without difficulty. With the proximal coil in the left renal pelvis, and the distal coil in the bladder, the Glidewire was removed, and the stent remained in proper place. A large amount of purulent fluid from the race side after placement of the stent. The bladder was then drained via the cystoscope, and the scope was removed without difficulty. The patient tolerated procedure well, was taken to the ICU in satisfactory condition. Discharge Disposition: PACU CC: Rick Clifford MD
== END 2017-09-04 12:50 | DRG 871 ==
LOC: ERH 19:10 → ERHI 08-31 00:35 → 1NO 08-31 00:35 → CRI 08-31 00:35 → ENRESERV 08-31 04:52 → CRI 08-31 06:22 → 1NO 09-02 21:04 → ENPENDDIS 09-04 11:32 → ENTRNSPT 09-04 12:25 → EDTRNSPT 09-04 12:28 → EDTRNSPTSTS 09-04 12:28 → CMPTRNSPT 09-04 12:47 → 1NO 09-04 12:50
PROVIDERS: Internal Medicine; Physician Assistant; Student in an Organized Health Care Education/Training Program
PROC: 0T778DZ Dilation of Left Ureter with Intraluminal Device, Via Natural or Artificial Opening Endoscopic (ICD-10-PCS; principal; 2017-08-31)
DX: A41.51 Sepsis due to Escherichia coli [E. coli] (principal); I21.A1 Myocardial infarction type 2; N17.9 Acute kidney failure, unspecified; N13.6 Pyonephrosis; E87.2 Acidosis; K76.0 Fatty (change of) liver, not elsewhere classified; M79.89 Other specified soft tissue disorders; E86.0 Dehydration
CPT/HCPCS: 1NSP; 84133; 84300; CCU; 36415; 74000; 74176; 78582; 81001; 82436; 82570; 87040; 87086; 87804; 87804-59; 93005; 93010; 93306; 93970; 97110-GO; 97116-GO; 97161-GP; A9540; A9558; C2617; J0696; J1644; J1940; J2001; J3490; Q2036

== ENCOUNTER → 2017-09-25 | Day surgery (SDC) | payer OTHER ==
[~2017-09-25] VITALS: Ht 149.9 cm; Wt 58.5 kg
[~2017-09-25] MED LIST: AMOX-CLAV 875-1 EACH PO; ANIMAL CHEWS1 EACH PO; ASPIRIN81 M4 PO; ATORVASTATIN CA80 M1 PO; CALCIUM + D SO1 EACH PO
--- NOTE | 2017-09-25 09:02 | Operative Report ---
Operative/Inv Procedure Report Surgery Date: 09/25/17 Name of Procedure: cysto. left stent removal. Left UPJ stone ESWL with fluoroscopy Pre-Operative Diagnosis: left stone and stent Post-Operative Diagnosis: same Estimated Blood Loss: scant Surgeon/Bee Robber: Rick Clifford MD Anesthesia: moderate sedation Specimens: Left stent Complications: None Operative/Procedure Note Note: The patient was taken to the operating room and placed on the ESWL table in supine position. With the patient awake, timeout was performed in order to confirm the patient's identity, laterality, procedure, anesthesia, and other pertinent perioperative information. The patient's left flank was positioned over the ESWL table cut-out, overlying the dome of the shockwave generator. C- arm fluroscopy, as well as renal US was used to locate the UPJ stone, and evaluate the left kidney. The stone was visible on fluroloscopy at the level of the proximal ureter alongside the stent. Renal US confimred resolution of hydronephrosis with and additional stone seen in the kidney. The left stone was approximate 7 mm in size, and it's position, for ESWL, was optimized with fluoroscopy:at AP and Oblique views. After adequate anesthesia and antibiotics, the left renal E.S.W.L. was initiated at low power levels x200 shocks. After noting the patient's tolerance to the shockwaves, the shockwave power level was quickly maximumized. Toward the end of the procedure, the composition of the stone had changed significantly indicating the pulverization of the ureter stone. A total of 3000 shockwaves were delivered to the stone in order to achieve complete lithotrypsy. The patient was then frog legged, draped and prepped in the usual surgical fashion. A 22 Swedish cystoscope sheath with a 30 angle lens was inserted into the urethra and into the bladder without difficulty. Upon entering the bladder the bladder was noted to be free of tumor free of stone both orifices in orthotopic position. The left orifice had a stent protruding from it, which was grasped with an alligator clamp. The cystoscope, along with entire left stent was removed without difficulty. The patient tolerated both procedures well, was awakened, and taken to recovery in satisfactory condition via stretcher. The pt. will eventually be dischared to home with pain meds, diet orders, and intructions to catch fragments with straining the urine. The patient is to have follow-up renal ultrasound and KUB in 2 weeks, prior to follow-up visit in my office. Discharge Disposition: Same Day Admissions
== END ==
LOC: STS 04:27
DX: N20.0 Calculus of kidney (principal); K21.9 Gastro-esophageal reflux disease without esophagitis
CPT/HCPCS: J2250